=== PATIENT | female | born 1975 | race Caucasian/White ===

== ENCOUNTER 2018-01-23 10:58 | Emergency (ER) | payer BC ==
[2018-01-23 11:07] VITALS: RESP 18
[2018-01-23] MEDS ORDERED: SODIUM CHLORIDE 0.9% 1,000 ML IV STA (11:25)
--- NOTE | 2018-01-23 11:30 | ED ---
Neuro HPI - General Source: patient, family <Vinnie Barth - Last Filed: 01/23/18 13:13> - General Source: patient, RN notes reviewed, old records reviewed Mode of arrival: ambulatory Limitations: no limitations - History of Present Illness Is the patient presenting with stroke symptoms?: Yes Last Known Well Date: 01/23/18 Last Known Well Time: 09:30 Onset/Timin -: minutes(s) Location: right face <Alis Mays - Last Filed: 01/31/18 18:23> - General Chief Complaint: Neuro Symptoms/Deficit Stated Complaint: Facial/Arm Numbness Time Seen by Provider: 01/23/18 11:12 - History of Present Illness Initial Comments: See course. Patient was also evaluated by myself with concerns for right-sided weakness. (BarthVinnie) Patient is a 42-year-old female chief complaint of migraine headache for the past 3 days. She reports that she took some Fioricet today and had some relief of her headache. She states that she noticed on 9:30 AM and it seemed like the right side of her facial drooping. She states she's had no other neurological symptoms. She states she feels numbness and tingling on the right lower half of her face. Forehead is preserved. Patient states that she hasn't. Minor minimal posterior headache at this time. Patient states she's had no nausea or vomiting. She denies any cardiac history. No previous history of strokes. She does have a history of migraines. She states that this migraine was typical for her, knowing changes or any worsening migraine symptoms over the past few days. (Alis Mays) - Related Data Home Medications: Home Medications Medication Instructions Recorded Confirmed Cetirizine HCl [Zyrtec] 10 mg PO DAILY 05/23/15 07/04/15 Ibuprofen [Motrin] 600 mg PO Q8HR PRN 05/23/15 07/04/15 Allergies/Adverse Reactions: Allergies Allergy/AdvReac Type Severity Reaction Status Date / Time No Known Allergies Allergy Verified 01/23/18 11:07 Review of Systems ROS Other: All systems not noted in ROS Statement are negative. Constitutional: Denies: fever Eyes: Denies: eye pain ENT: Denies: ear pain Respiratory: Denies: cough Cardiovascular: Denies: chest pain Endocrine: Denies: fatigue Gastrointestinal: Denies: abdominal pain Genitourinary: Denies: dysuria Musculoskeletal: Denies: back pain Skin: Denies: rash Neurological: Reports: headache (Resolved), weakness. Denies: confusion <Vinnie Barth - Last Filed: 01/23/18 13:13> ROS Other: All systems not noted in ROS Statement are negative. <Alis Mays - Last Filed: 01/31/18 18:23> ROS Statement: Those systems with pertinent positive or pertinent negative responses have been documented in the HPI. General Exam Limitations: no limitations General appearance: alert, in no apparent distress Head exam: Present: atraumatic Eye exam: Present: normal appearance, PERRL, EOMI. Absent: nystagmus ENT exam: Present: normal oropharynx Neck exam: Present: normal inspection Respiratory exam: Present: normal lung sounds bilaterally Cardiovascular Exam: Present: regular rate, normal rhythm Extremities exam: Present: normal inspection Neurological exam: Present: alert, CN II-XII intact. Absent: motor sensory deficit Expanded Neurological exam: Present: protecting the airway Speech: Present: fluid speech Cranial nerves: EOM's Intact: Normal, Facial Sensation: Abnormal Right ( Decrease right facial of the maxillary and mandibular region) Cerebellar function: Finger to Nose: Normal Sensory exam: Upper Extremity Light Touch: Normal, Lower Extremity Light Touch: Abnormal Right (Slightly decreased on the right) Motor strength exam: RUE: 4, LUE: 5, RLE: 4, LLE: 5 Eye Response: (4) open spontaneously Motor Response: (6) obeys commands Verbal Response: (5) oriented Psychiatric exam: Present: normal affect, normal mood Skin exam: Present: normal color <Vinnie Barth - Last Filed: 01/23/18 13:13> Limitations: no limitations General appearance: alert, in no apparent distress Head exam: Present: atraumatic, normocephalic, normal inspection Eye exam: Present: normal appearance, PERRL, EOMI. Absent: scleral icterus, conjunctival injection, periorbital swelling ENT exam: Present: normal exam, normal oropharynx, mucous membranes moist, other (Patient is a minor right-sided facial droop. Forehead is preserved.) Neck exam: Present: normal inspection. Absent: tenderness, meningismus, lymphadenopathy Respiratory exam: Present: normal lung sounds bilaterally. Absent: respiratory distress, wheezes, rales, rhonchi, stridor Cardiovascular Exam: Present: regular rate, normal rhythm, normal heart sounds. Absent: systolic murmur, diastolic murmur, rubs, gallop, clicks GI/Abdominal exam: Present: soft, normal bowel sounds. Absent: distended, tenderness, guarding, rebound, rigid Extremities exam: Present: normal inspection, full ROM, normal capillary refill , other (Minor right arm weakness.). Absent: tenderness, pedal edema, joint swelling, calf tenderness Back exam: Present: normal inspection Neurological exam: Present: alert, oriented X3, CN II-XII intact Psychiatric exam: Present: normal affect, normal mood Skin exam: Present: warm, dry, intact, normal color. Absent: rash <Alis Mays - Last Filed: 01/31/18 18:23> - General Exam Comments Initial Comments: 42-year-old female. Alert. No acute distress. (Alis Mays) Stroke MDM - Lab Data Result diagrams: 01/23/18 11:30 01/23/18 11:30 - Radiology Data Radiology results: report reviewed (Computed tomography scan of the brain and CT angios of the brain and neck reveal no acute abnormality) <Vinnie Barth - Last Filed: 01/23/18 13:13> - Lab Data Result diagrams: 01/23/18 11:30 01/23/18 11:30 <Alis Mays - Last Filed: 01/31/18 18:23> - Lab Data Lab Results 01/23/18 01/23/18 01/23/18 Range/Units 11:30 11:30 11:30 WBC 6.0 (3.8-10.6) k/uL RBC 4.56 (3.80-5.40) m/uL Hgb 14.0 (11.4-16.0) gm/dL Hct 42.6 (34.0-46.0) % MCV 93.6 (80.0-100.0) fL MCH 30.8 (25.0-35.0) pg MCHC 32.9 (31.0-37.0) g/dL RDW 13.7 (11.5-15.5) % Plt Count 258 (150-450) k/uL Neutrophils % 61 % Lymphocytes % 27 % Monocytes % 6 % Eosinophils % 4 % Basophils % 1 % Neutrophils # 3.7 (1.3-7.7) k/uL Lymphocytes # 1.6 (1.0-4.8) k/uL Monocytes # 0.3 (0-1.0) k/uL Eosinophils # 0.3 (0-0.7) k/uL Basophils # 0.0 (0-0.2) k/uL PT (9.0-12.0) sec INR (<1.2) APTT (22.0-30.0) sec Sodium 144 (137-145) mmol/L Potassium 4.4 (3.5-5.1) mmol/L Chloride 112 H (98-107) mmol/L Carbon Dioxide 21 L (22-30) mmol/L Anion Gap 11 mmol/L BUN 11 (7-17) mg/dL Creatinine 0.71 (0.52-1.04) mg/dL Est GFR (CKD-EPI)AfAm >90 (>60 ml/min/1.73 sqM) Est GFR (CKD-EPI)NonAf >90 (>60 ml/min/1.73 sqM) Glucose 98 (74-99) mg/dL Calcium 8.9 (8.4-10.2) mg/dL Total Bilirubin 0.5 (0.2-1.3) mg/dL AST 17 (14-36) U/L ALT 26 (9-52) U/L Alkaline Phosphatase 52 (38-126) U/L Total Creatine Kinase 75 (30-135) U/L CK-MB (CK-2) 0.3 (0.0-2.4) ng/mL CK-MB (CK-2) Rel Index 0.4 Troponin I <0.012 (0.000-0.034) ng/mL Total Protein 6.6 (6.3-8.2) g/dL Albumin 3.8 (3.5-5.0) g/dL 01/23/18 Range/Units 11:30 WBC (3.8-10.6) k/uL RBC (3.80-5.40) m/uL Hgb (11.4-16.0) gm/dL Hct (34.0-46.0) % MCV (80.0-100.0) fL MCH (25.0-35.0) pg MCHC (31.0-37.0) g/dL RDW (11.5-15.5) % Plt Count (150-450) k/uL Neutrophils % % Lymphocytes % % Monocytes % % Eosinophils % % Basophils % % Neutrophils # (1.3-7.7) k/uL Lymphocytes # (1.0-4.8) k/uL Monocytes # (0-1.0) k/uL Eosinophils # (0-0.7) k/uL Basophils # (0-0.2) k/uL PT 9.8 (9.0-12.0) sec INR 1.0 (<1.2) APTT 22.3 (22.0-30.0) sec Sodium (137-145) mmol/L Potassium (3.5-5.1) mmol/L Chloride (98-107) mmol/L Carbon Dioxide (22-30) mmol/L Anion Gap mmol/L BUN (7-17) mg/dL Creatinine (0.52-1.04) mg/dL Est GFR (CKD-EPI)AfAm (>60 ml/min/1.73 sqM) Est GFR (CKD-EPI)NonAf (>60 ml/min/1.73 sqM) Glucose (74-99) mg/dL Calcium (8.4-10.2) mg/dL Total Bilirubin (0.2-1.3) mg/dL AST (14-36) U/L ALT (9-52) U/L Alkaline Phosphatase (38-126) U/L Total Creatine Kinase (30-135) U/L CK-MB (CK-2) (0.0-2.4) ng/mL CK-MB (CK-2) Rel Index Troponin I (0.000-0.034) ng/mL Total Protein (6.3-8.2) g/dL Albumin (3.5-5.0) g/dL Past Medical History Additional Past Medical History / Comment(s): Vertigo, migraines, palpitation History of Any Multi-Drug Resistant Organisms: None Reported Past Surgical History: Section, Orthopedic Surgery Additional Past Surgical History / Comment(s): ORIF Right humerus Past Psychological History: No Psychological Hx Reported Smoking Status: Never smoker Past Alcohol Use History: Occasional Past Drug Use History: None Reported <Alis Mays - Last Filed: 01/31/18 18:23> Course <Vinnie Barth - Last Filed: 01/23/18 13:13> <Alis Mays - Last Filed: 01/31/18 18:23> Vital Signs 01/23/18 01/23/18 01/23/18 11:04 11:30 11:45 Temperature 98.3 F Pulse Rate 75 94 74 Respiratory 18 18 18 Rate Blood Pressure 166/83 141/88 129/59 O2 Sat by Pulse 100 99 99 Oximetry 01/23/18 01/23/18 01/23/18 12:00 12:15 13:30 Temperature Pulse Rate 66 79 76 Respiratory 18 18 18 Rate Blood Pressure 111/79 129/79 122/76 O2 Sat by Pulse 99 98 98 Oximetry 01/23/18 13:49 Temperature 98.9 F Pulse Rate 76 Respiratory 18 Rate Blood Pressure 122/59 O2 Sat by Pulse 98 Oximetry - Reevaluation(s) Reevaluation #1: 01/23/18 11:35 Code stroke as been called. Patient case brought to my attention by physician accounts receivable assistant with concerns for right facial droop. Patient reevaluated by myself, Dr. Barth. Patient states she has been having a migraine headache for the past couple of days. Patient woke up around 8:30. Around 9:30 patient noticed some odd sensation of her right face. Patient does admit there may be some minimal weakness of her right arm and leg. Upon exam patient does have mild right facial droop not involving the forehead. There is some decreased sensation on the right face as well. Patient is alert and answers questions appropriately and follows commands appropriately. Patient has minimal drift of right arm and right leg. There is some mild decreased sensation of the right leg. Nurse is doing NAH scale. cT scan was ordered. Patient is updated on potential use of TPA. Patient is provided risks and benefit information and informed that she will need to make a decision in the near future. is also present during discussion. 01/23/18 12:07 Patient again reevaluated. Patient again updated on risks and benefits of TPA. Case was discussed in detail with Dr. suh who does recommend providing TPA. He did review computed tomography scan. Pharmacy was notified. Exclusion criteria were reviewed and patient is a candidate. Patient does demonstrate medical decision making. 01/23/18 12:21 TPA has arrived and is being provided. Patient does want TPA to be given. is present and in agreement. Patient was evaluated with stroke robot by Dr. suh. 01/23/18 12:28 Patient was not provided TPA and less than 1 hour of arrival secondary to patient not identified as a stroke upon presentation. 01/23/18 12:51 EKG: Normal sinus rhythm 65. UT 152. QRS 86. QT 422. QTC 4:30. Normal axis. Normal QRS. No acute ST change. 01/23/18 13:13 Doctor Deandre called back and wants patient transferred to [facility]. Patient was updated regarding this. ER was notified. (Vinnie Barth) Critical Care Time Critical Care Time: Yes Total Critical Care Time: 42 <Vinnie Barth - Last Filed: 01/23/18 13:13> Disposition Is patient prescribed a controlled substance at d/c from ED?: No Time of Disposition: 13:14 - Out of Hospital Transfer - Req. Specs Out of Hospital Transfer - Requested Specifics: Other Emergency Center <Vinnie Barth - Last Filed: 01/23/18 13:13> Is patient prescribed a controlled substance at d/c from ED?: No When asked, does pt state using other controlled substances?: No If prescribed controlled substance>3 days was MAPS reviewed?: No If opioid is for acute pain is fill amount 7 days or less?: No If Rx opioid, was Start Talking consent form obtained?: No <Alis Mays - Last Filed: 01/31/18 18:23> Clinical Impression: Cerebrovascular accident Disposition: OTHER INSTITUTION NOT DEFINED Condition: Stable Referrals: None,Stated [Primary Care Provider] - 1-2 days
[2018-01-23] MEDS ORDERED: RX INFO: IV CONTRAST WAS GIVEN 1 EACH MISC MISCELLANE PRN (11:32)
[2018-01-23 11:53] LABS: Basophils % (A) 1 %; Eosinophils # (A) 0.3 k/uL (0-0.7); Eosinophils % (A) 4 %; HCT 42.6 % (34.0-46.0); Lymphocytes # (A) 1.6 k/uL (1.0-4.8); Lymphocytes % (A) 27 %; MCH 30.8 pg (25.0-35.0); MCHC 32.9 g/dL (31.0-37.0); MCV 93.6 fL (80.0-100.0); Mean Platelet Volume 6.8; Monocytes # (A) 0.3 k/uL (0-1.0); Monocytes % (A) 6 %; Neutrophils # (A) 3.7 k/uL (1.3-7.7); Neutrophils % (A) 61 %; Platelet Count 258 k/uL (150-450); RBC 4.56 m/uL (3.80-5.40); RDW 13.7 % (11.5-15.5)
[2018-01-23 12:01] LABS: Partial Thromboplastin Time 22.3 sec (22.0-30.0); Prothrombin Time 9.8 sec (9.0-12.0)
[2018-01-23 12:04] LABS: ALT 26 U/L (9-52); AST 17 U/L (14-36); Albumin 3.8 g/dL (3.5-5.0); Alkaline Phosphatase 52 U/L (38-126); Anion Gap 11 mmol/L; Blood Urea Nitrogen 11 mg/dL (7-17); Calcium 8.9 mg/dL (8.4-10.2); Carbon Dioxide 21 mmol/L (22-30); Chloride 112 mmol/L (98-107); Glucose 98 mg/dL (74-99); Potassium 4.4 mmol/L (3.5-5.1); Sodium 144 mmol/L (137-145); Total Bilirubin 0.5 mg/dL (0.2-1.3); Total Protein 6.6 g/dL (6.3-8.2)
--- NOTE | 2018-01-23 12:04 | CT ---
EXAMINATION TYPE: CT brain wo con DATE OF EXAM: 01/23/2018 COMPARISON: 08/29/2017 HISTORY: 42-year-old female neurologic deficits, weakness TECHNIQUE: Examination was done in axial plane without intravenous contrast. Coronal and sagittal r econstructions performed. CT DLP: 995.50 mGycm Automated exposure control for dose reduction was used. FINDINGS: There is no evidence of acute intracranial hemorrhage, acute ischemic changes, mass, mass-effect, or extra-axial fluid collection. There is no effacement of cerebral sulci or basal subarachnoid cister ns. There is no hydrocephalus. There is no midline shift. Alston-white matter distinction is preserv ed. Moderate mucosal thickening ethmoid air cells. Trace air-fluid level right maxillary sinus and mild m ucosal thickening left maxillary sinus. Mastoid air cells well pneumatized. Orbits and globes are int act. IMPRESSION: No acute intracranial abnormality seen.
[2018-01-23] MEDS ORDERED: ALTEPLASE BOLUS 9 MG in EMPTY SYRINGE 1 SYR IV STA (12:07)
[2018-01-23] MEDS ORDERED: ALTEPLASE 81 MG in EMPTY BAG 1 BAG IV STA (12:07)
[2018-01-23 12:13] LABS: Creatine Kinase 75 U/L (30-135)
[2018-01-23 12:26] LABS: Creatine Kinase MB 0.3 ng/mL (0.0-2.4); Troponin I <0.012 ng/mL (0.000-0.034)
--- NOTE | 2018-01-23 12:42 | CT ---
EXAMINATION TYPE: CT angio head neck DATE OF EXAM: 01/23/2018 COMPARISON: CT brain same day HISTORY: 42-year-old female with weakness TECHNIQUE: Contiguous axial scanning of the brain and neck performed with IV Contrast, patient inject ed with 100 mL of Isovue 370. Coronal/sagittal MIP reconstructions performed. 3-D reconstructions gen erated by a dedicated independent workstation. CT DLP: 420.10 mGycm Automated exposure control for dose reduction was used. FINDINGS: Neck: Lobulated mucosal thickening floor of the left maxillary sinus and also the right with a trace air-fl uid level in the right maxillary sinus. Moderate mucosal thickening ethmoid air cells. There is conventional arterial vessel branching anatomy. The right common and internal carotid arteri es are widely patent. The left common and internal carotid arteries are widely patent. The vertebral artery origins are patent and the vessels are codominant and appear opacified throughou t their course. Head: There are limitations due to excessive noise artifacts. No significant stenosis, aneurysmal change, or arterial occlusion is seen. IMPRESSION: 1. NECK: THE CAROTID AND VERTEBRAL ARTERIES OF THE NECK REMAIN WIDELY PATENT. 2. HEAD: SOME LIMITATIONS DUE TO NOISE ARTIFACTS. NO ARTERIAL OCCLUSION, SIGNIFICANT STENOSIS, OR AN EURYSMAL CHANGE SEEN.
[2018-01-23 13:49] VITALS: PULSE 76
[2018-01-23 13:50] VITALS: BP 122/59; TEMP 98.9
== END 2018-01-23 13:50 | disposition other institution (70) ==
LOC: EC 10:58
DX: I63.9 Cerebral infarction, unspecified (principal); G43.909 Migraine, unspecified, not intractable, without status migrainosus; R40.2142 Coma scale, eyes open, spontaneous, at arrival to emergency department; R40.2252 Coma scale, best verbal response, oriented, at arrival to emergency department; R40.2362 Coma scale, best motor response, obeys commands, at arrival to emergency department; Z79.899 Other long term (current) drug therapy
CPT/HCPCS: 99291; 37195; 36415; 93005; 80053; 82550; 82553; 84484; 85025; 85610; 85730; 70496; 70450; 70498; J2997; Q9967

== ENCOUNTER → 2019-07-04 | Outpatient (CLI) | payer BC ==
[2019-07-04 12:55] LABS: HCT 39.3 % (34.0-46.0); HGB 13.2 gm/dL (11.4-16.0); MCH 31.8 pg (25.0-35.0); MCHC 33.5 g/dL (31.0-37.0); MCV 94.9 fL (80.0-100.0); Mean Platelet Volume 6.5; Platelet Count 314 k/uL (150-450); RBC 4.14 m/uL (3.80-5.40); RDW 14.1 % (11.5-15.5); WBC 8.3 k/uL (3.8-10.6)
[2019-07-04 14:24] LABS: Erythrocyte Sedimentation Rate 11 mm/hr (0-20)
[2019-07-04 19:59] LABS: African American GFR (CKD) 78.8 (60.0-200.0); Anion Gap 10.7 mmol/L (4.00-12.00); Calcium 8.6 mg/dL (8.7-10.3); Carbon Dioxide 24.3 mmol/L (21.6-31.8); Potassium 4.2 mmol/L (3.5-5.5)
== END | disposition home or self-care (01) ==
LOC: LABWHC1 11:59
PROVIDERS: ATTEND Psychiatry & Neurology Neurology
DX: M79.10 Myalgia, unspecified site (principal); M54.2 Cervicalgia; M54.5 Low back pain; G43.909 Migraine, unspecified, not intractable, without status migrainosus; T42.6X1A Poisoning by other antiepileptic and sedative-hypnotic drugs, accidental (unintentional), initial encounter
CPT/HCPCS: 36415; 80048; 82306; 82550; 82607; 84439; 84443; 85027; 85652; 86038

== ENCOUNTER → 2020-09-17 | Outpatient (CLI) | payer BC ==
--- NOTE | 2020-09-17 11:10 | US ---
EXAMINATION TYPE: US abdomen complete DATE OF EXAM: 09/17/2020 COMPARISON: NONE CLINICAL HISTORY: 44-year-old female R10.13 epigastric pain. TECHNIQUE: Multiple sonographic images of the abdomen are obtained. FINDINGS: EXAM MEASUREMENTS: Liver Length: 12.4 cm Gallbladder Wall: 3 mm CBD: 0.4 cm Spleen: 10.6 cm Right Kidney: 10.3 x 4.1 x 4.3 cm Left Kidney: 10.5 x 4.2 x 4.9 cm Meter Setter notes: Morbidly obese patient, technically difficult study. Pancreas: Only a small portion of the pancreatic neck is visualized. Remainder is obscured by bowel gas shadowing. Liver: Slightly heterogeneous echotexture. Unable to image the dome of the liver due to high position . Gallbladder: wnl CBD: wnl Spleen: wnl Right Kidney: Inferior pole obscured by bowel gas. No hydronephrosis. Left Kidney: wnl Upper IVC: wnl Abd Aorta: portions visualized wnl, distal/bifurcation obscured by bowel IMPRESSION: 1. Slightly heterogeneous echotexture of the liver may be on a technical basis or could reflect nonsp ecific hepatocellular disease. 2. Technically difficult study due to patient's size. Unable to adequately image the dome of the live r and pancreas. 3. No gallstones or biliary ductal dilatation.
== END | disposition home or self-care (01) ==
LOC: RADUSWWP 07:36
PROVIDERS: ATTEND Family Medicine
DX: R93.2 Abnormal findings on diagnostic imaging of liver and biliary tract (principal); R10.13 Epigastric pain
CPT/HCPCS: 76700

== ENCOUNTER 2020-12-01 20:59 | Observation (INO) | payer BC ==
--- NOTE | 2020-12-01 21:48 | XR ---
EXAMINATION TYPE: XR chest 2V DATE OF EXAM: 12/01/2020 COMPARISON: 05/23/2015. HISTORY: Chest pain. TECHNIQUE: Frontal and lateral views of the chest are obtained. FINDINGS: There is no focal air space opacity, pleural effusion, or pneumothorax seen. The cardiac silhouette size is within normal limits. The osseous structures are intact. IMPRESSION: No acute cardiopulmonary process.
[2020-12-01 22:09] LABS: Basophils % (A) 0 %; Eosinophils # (A) 0.1 k/uL (0-0.7); Eosinophils % (A) 1 %; HCT 39.8 % (34.0-46.0); HGB 13.2 gm/dL (11.4-16.0); Lymphocytes # (A) 1.4 k/uL (1.0-4.8); Lymphocytes % (A) 10 %; MCH 30.2 pg (25.0-35.0); MCHC 33.1 g/dL (31.0-37.0); MCV 91.3 fL (80.0-100.0); Monocytes # (A) 0.6 k/uL (0-1.0); Monocytes % (A) 5 %; Neutrophils # (A) 11.4 k/uL (1.3-7.7); Neutrophils % (A) 84 %; Platelet Count 316 k/uL (150-450); RBC 4.36 m/uL (3.80-5.40); RDW 15.6 % (11.5-15.5); WBC 13.6 k/uL (3.8-10.6)
[2020-12-01 22:19] LABS: Albumin 4.1 g/dL (3.5-5.0); Calcium 9.6 mg/dL (8.4-10.2); Magnesium 1.9 mg/dL (1.6-2.3); Potassium 4.2 mmol/L (3.5-5.1); Total Bilirubin 0.5 mg/dL (0.2-1.3); Total Protein 7.3 g/dL (6.3-8.2)
[2020-12-01 22:26] LABS: INR 0.9 (<1.2); Prothrombin Time 9.9 sec (9.0-12.0)
[2020-12-01 22:30] LABS: Partial Thromboplastin Time 21.4 sec (22.0-30.0)
[2020-12-01] MEDS ORDERED: SODIUM CHLORIDE 0.9% 1,000 ML IV STA (23:32)
[2020-12-01] MEDS ORDERED: HYDROmorphone 0.5 MG/0.5 ML SYRINGE IVP STA (23:33)
[2020-12-01] MEDS ORDERED: ONDANSETRON 4 MG/2 ML VIAL IVP STA (23:33)
[2020-12-01 23:54] LABS: Amylase 36 U/L (30-110); Lipase 67 U/L (23-300)
[2020-12-01 23:59] LABS: Appearance,Urine Clear (Clear); Bilirubin,Urine Negative (Negative); Blood,Urine Negative (Negative); Color,Urine Yellow; Glucose,Urine (UA) Negative (Negative); Ketones,Urine Negative (Negative); Leukocyte Esterase,Urine Negative (Negative); Nitrite,Urine Negative (Negative); PH, Urine 5.5 (5.0-8.0); Protein,Urine Negative (Negative); Specific Gravity,Urine 1.024 (1.001-1.035)
--- NOTE | 2020-12-02 00:01 | ED ---
General Adult HPI - General Chief complaint: Chest Pain Stated complaint: Stomach pain Time Seen by Provider: 12/01/20 23:15 Source: patient Mode of arrival: ambulatory Limitations: no limitations - History of Present Illness Initial comments: 45-year-old female with a past medical history of migraines, palpitations presents to the emergency room for epigastric pain. Patient states this started around 5:30 PM. States it radiates to her back. States she is nauseous as well. She has vomited once. Patient denies lower abdominal pain. Denies radia ting chest pain. Patient denies diarrhea. Patient did test positive for Covid on Wednesday but has not had any symptoms of Covid and believes she actually had a couple months ago. Patient has no other complaints at this time including shortness of breath, chest pain, headache, or visual changes. - Related Data Home Medications Medication Instructions Recorded Confirmed Cetirizine HCl [Zyrtec] 10 mg PO DAILY 05/23/15 07/04/15 Ibuprofen [Motrin] 600 mg PO Q8HR PRN 05/23/15 07/04/15 Allergies Allergy/AdvReac Type Severity Reaction Status Date / Time No Known Allergies Allergy Verified 12/01/20 21:21 Review of Systems ROS Statement: Those systems with pertinent positive or pertinent negative responses have been documented in the HPI. ROS Other: All systems not noted in ROS Statement are negative. Past Medical History Additional Past Medical History / Comment(s): Vertigo, migraines, palpitation History of Any Multi-Drug Resistant Organisms: None Reported Past Surgical History: Section, Orthopedic Surgery Additional Past Surgical History / Comment(s): ORIF Right humerus Past Psychological History: No Psychological Hx Reported Smoking Status: Never smoker Past Alcohol Use History: Occasional Past Drug Use History: None Reported General Exam Limitations: no limitations General appearance: alert, in no apparent distress Head exam: Present: atraumatic, normocephalic, normal inspection Eye exam: Present: normal appearance, PERRL, EOMI. Absent: scleral icterus, conjunctival injection, periorbital swelling ENT exam: Present: normal exam, mucous membranes moist Neck exam: Present: normal inspection. Absent: tenderness, meningismus, lymphadenopathy Respiratory exam: Present: normal lung sounds bilaterally. Absent: respiratory distress, wheezes, rales, rhonchi, stridor Cardiovascular Exam: Present: regular rate, normal rhythm, normal heart sounds. Absent: systolic murmur, diastolic murmur, rubs, gallop, clicks GI/Abdominal exam: Present: soft, tenderness (epigastric tenderness, no lower abdominal tenderness), normal bowel sounds. Absent: distended, guarding, reboun d, rigid Extremities exam: Present: other (bilat dp pulses 2+, bilat radial pulses 2+, no skin or temp changes in extremities) Course Vital Signs 12/01/20 12/02/20 21:16 01:01 Temperature 97.8 F 98.9 F Pulse Rate 87 84 Respiratory 18 20 Rate Blood Pressure 144/92 117/77 O2 Sat by Pulse 99 98 Oximetry EKG Findings - EKG Comments: EKG Findings:: Normal sinus rhythm, ventricular rate 74, ND interval 170, QTC 417 Medical Decision Making - Medical Decision Making Vitals Stable. Patient initially in moderate distress secondary to pain. CBC does show leukocytosis. CMP shows slight transaminitis. Amylase and lipase are normal. Gallbladder ultrasound did show a distended gallbladder with slightly thickened wall and a trace amount of surrounding fluid. Small stone and/or sludge dependently with positive sonographic García sign suspicious for acute cholecystitis. This is clinically correlated with patient's presentation. Dr. Webber have discussed this case with Dr. Crump, will admit patient. - Lab Data Result diagrams: 12/01/20 21:53 12/01/20 21:53 Lab Results 12/01/20 12/01/20 12/01/20 Range/Units 21:53 21:53 21:53 WBC 13.6 H (3.8-10.6) k/uL RBC 4.36 (3.80-5.40) m/uL Hgb 13.2 (11.4-16.0) gm/dL Hct 39.8 (34.0-46.0) % MCV 91.3 (80.0-100.0) fL MCH 30.2 (25.0-35.0) pg MCHC 33.1 (31.0-37.0) g/dL RDW 15.6 H (11.5-15.5) % Plt Count 316 (150-450) k/uL MPV 7.0 Neutrophils % 84 % Lymphocytes % 10 % Monocytes % 5 % Eosinophils % 1 % Basophils % 0 % Neutrophils # 11.4 H (1.3-7.7) k/uL Lymphocytes # 1.4 (1.0-4.8) k/uL Monocytes # 0.6 (0-1.0) k/uL Eosinophils # 0.1 (0-0.7) k/uL Basophils # 0.0 (0-0.2) k/uL PT 9.9 (9.0-12.0) sec INR 0.9 (<1.2) APTT 21.4 L (22.0-30.0) sec Sodium 136 L (137-145) mmol/L Potassium 4.2 (3.5-5.1) mmol/L Chloride 104 (98-107) mmol/L Carbon Dioxide 21 L (22-30) mmol/L Anion Gap 11 mmol/L BUN 10 (7-17) mg/dL Creatinine 0.91 (0.52-1.04) mg/dL Est GFR (CKD-EPI)AfAm 87 (>60 ml/min/1.73 sqM) Est GFR (CKD-EPI)NonAf 75 (>60 ml/min/1.73 sqM) Glucose 143 H (74-99) mg/dL Calcium 9.6 (8.4-10.2) mg/dL Magnesium 1.9 (1.6-2.3) mg/dL Total Bilirubin 0.5 (0.2-1.3) mg/dL AST 129 H (14-36) U/L ALT 48 H (4-34) U/L Alkaline Phosphatase 117 (38-126) U/L Troponin I (0.000-0.034) ng/mL Total Protein 7.3 (6.3-8.2) g/dL Albumin 4.1 (3.5-5.0) g/dL Amylase (30-110) U/L Lipase (23-300) U/L Urine Color Urine Appearance (Clear) Urine pH (5.0-8.0) Ur Specific [place] (1.001-1.035) Urine Protein (Negative) Urine Glucose (UA) (Negative) Urine Ketones (Negative) Urine Blood (Negative) Urine Nitrite (Negative) Urine Bilirubin (Negative) Urine Urobilinogen (<2.0) mg/dL Ur Leukocyte Esterase (Negative) 03/28/21 03/28/21 03/28/21 Range/Units 21:53 21:53 23:36 WBC (3.8-10.6) k/uL RBC (3.80-5.40) m/uL Hgb (11.4-16.0) gm/dL Hct (34.0-46.0) % MCV (80.0-100.0) fL MCH (25.0-35.0) pg MCHC (31.0-37.0) g/dL RDW (11.5-15.5) % Plt Count (150-450) k/uL MPV Neutrophils % % Lymphocytes % % Monocytes % % Eosinophils % % Basophils % % Neutrophils # (1.3-7.7) k/uL Lymphocytes # (1.0-4.8) k/uL Monocytes # (0-1.0) k/uL Eosinophils # (0-0.7) k/uL Basophils # (0-0.2) k/uL PT (9.0-12.0) sec INR (<1.2) APTT (22.0-30.0) sec Sodium (137-145) mmol/L Potassium (3.5-5.1) mmol/L Chloride (98-107) mmol/L Carbon Dioxide (22-30) mmol/L Anion Gap mmol/L BUN (7-17) mg/dL Creatinine (0.52-1.04) mg/dL Est GFR (CKD-EPI)AfAm (>60 ml/min/1.73 sqM) Est GFR (CKD-EPI)NonAf (>60 ml/min/1.73 sqM) Glucose (74-99) mg/dL Calcium (8.4-10.2) mg/dL Magnesium (1.6-2.3) mg/dL Total Bilirubin (0.2-1.3) mg/dL AST (14-36) U/L ALT (4-34) U/L Alkaline Phosphatase (38-126) U/L Troponin I <0.012 (0.000-0.034) ng/mL Total Protein (6.3-8.2) g/dL Albumin (3.5-5.0) g/dL Amylase 36 (30-110) U/L Lipase 67 (23-300) U/L Urine Color Yellow Urine Appearance Clear (Clear) Urine pH 5.5 (5.0-8.0) Ur Specific [place] 1.024 (1.001-1.035) Urine Protein Negative (Negative) Urine Glucose (UA) Negative (Negative) Urine Ketones Negative (Negative) Urine Blood Negative (Negative) Urine Nitrite Negative (Negative) Urine Bilirubin Negative (Negative) Urine Urobilinogen 2.0 (<2.0) mg/dL Ur Leukocyte Esterase Negative (Negative) Disposition Clinical Impression: Cholecystitis, Transaminitis, Leukocytosis Disposition: ADMITTED IP TO THIS HOSP Is patient prescribed a controlled substance at d/c from ED?: No Referrals: Jin Brink MD [Primary Care Provider] - 1-2 days Time of Disposition: 01:59
--- NOTE | 2020-12-02 00:53 | XR ---
EXAMINATION TYPE: XR abdomen 1V DATE OF EXAM: 12/02/2020 COMPARISON: NONE HISTORY: Nausea and vomiting TECHNIQUE: 2 views supine FINDINGS: There is no sign of intestinal obstruction or pneumoperitoneum. Fecal pattern is normal. Th ere is no evidence of a mass. There are no pathologic calcifications over the kidneys. Lung bases are clear. IMPRESSION: Nonacute abdomen.
--- NOTE | 2020-12-02 01:19 | US ---
EXAM: US Abdomen Limited, Gallbladder CLINICAL HISTORY: ITS.REASON US Reason: pain TECHNIQUE: Real-time ultrasound of the right upper quadrant with image documentation. COMPARISON: No relevant prior studies available. FINDINGS: Liver: The liver is mildly enlarged and fatty infiltrated measuring 18. 8 cm. No focal liver lesion is seen. Gallbladder: The gallbladder is fully distended. There is a 6 mm stone versus sludge in the dependent portion of the gallbladder. The gallbladder wall is slightly thickened measuring 3.2 mm. A trace amount of pericholecystic fluid is seen. Common bile duct: The common bile duct is upper normal measuring 7 mm. No stones. No dilation. Pancreas: Unremarkable as visualized. Right kidney: The right kidney measures 10.1 cm with no hydronephrosis. IMPRESSION: Distended gallbladder with slightly thickened wall a trace amount of surrounding fluid. Small stone and/or sludge dependently with positive sonographic García sign suspicious for acute cholecystitis.
[2020-12-02] MEDS ORDERED: AMPICILLIN-SULBACTAM 3 GM in SODIUM CHLORIDE 0.9% 100 ML IVPB STA (01:25)
[2020-12-02] MEDS ORDERED: ONDANSETRON 4 MG/2 ML VIAL IVP PRN (02:00)
[2020-12-02] MEDS ORDERED: ACETAMINOPHEN TAB 325 MG TAB PO PRN (02:00)
[2020-12-02] MEDS ORDERED: NALOXONE 0.4 MG/ML 1 ML VIAL IV PRN (02:00)
[2020-12-02] MEDS: SODIUM CHLORIDE 0.9% 1,000 ML IV SCH ×3 (02:28→17:48)
[2020-12-02] MEDS: HYDROmorphone 0.5 MG/0.5 ML SYRINGE IVP PRN (03:28)
[2020-12-02] MEDS ORDERED: ACETAMINOPHEN IV (For NPO) 1,000 MG in EMPTY BAG 1 BAG IVPB ONE (04:30)
[2020-12-02] MEDS ORDERED: INDOCYANINE GREEN 25 MG VIAL IV STA (04:34)
[2020-12-02] MEDS ORDERED: SCOPOLAMINE 1.5MG/72HR PATCH TRANSDERM SCH (04:45)
[2020-12-02] MEDS: PIPERACILLIN-TAZOBACTAM 3.375 GM in SODIUM CHLORIDE 0.9% 100 ML IVPB SCH ×4 (05:30→23:54)
[2020-12-02] MEDS: KETOROLAC 15 MG/ML 1 ML VIAL IVP SCH ×3 (05:52→17:51)
[2020-12-02 11:18] LABS: Basophils % (A) 0 %; Eosinophils # (A) 0.1 k/uL (0-0.7); Eosinophils % (A) 1 %; HCT 36.5 % (34.0-46.0); HGB 12.6 gm/dL (11.4-16.0); Lymphocytes # (A) 1.8 k/uL (1.0-4.8); Lymphocytes % (A) 17 %; MCH 31.7 pg (25.0-35.0); MCHC 34.5 g/dL (31.0-37.0); Mean Platelet Volume 7.1; Monocytes # (A) 0.7 k/uL (0-1.0); Monocytes % (A) 7 %; Neutrophils # (A) 7.6 k/uL (1.3-7.7); Neutrophils % (A) 74 %; Platelet Count 288 k/uL (150-450); RBC 3.96 m/uL (3.80-5.40); RDW 15.9 % (11.5-15.5); WBC 10.2 k/uL (3.8-10.6)
[2020-12-02 11:25] LABS: ALT 52 U/L (4-34); AST 77 U/L (14-36); African American GFR (CKD) >90 (>60 ml/min/1.73 sqM); Albumin 3.6 g/dL (3.5-5.0); Alkaline Phosphatase 104 U/L (38-126); Anion Gap 5 mmol/L; Blood Urea Nitrogen 7 mg/dL (7-17); Calcium 8.5 mg/dL (8.4-10.2); Carbon Dioxide 24 mmol/L (22-30); Chloride 109 mmol/L (98-107); Glucose 93 mg/dL (74-99); Non-African American GFR(CKD) 86 (>60 ml/min/1.73 sqM); Potassium 4.2 mmol/L (3.5-5.1); Sodium 138 mmol/L (137-145); Total Bilirubin 0.5 mg/dL (0.2-1.3); Total Protein 6.7 g/dL (6.3-8.2)
--- NOTE | 2020-12-02 13:00 | P.GSHP ---
History of Present Illness H&P Date: 12/02/20 Patient reports gallbladder attack from 5:30 yesterday. She has cholecystitis. Recommend cholecystectomy. May have 4 oz juice now in interim. CHIEF COMPLAINT: Cholecystitis HISTORY OF PRESENT ILLNESS: The patient is a 45-year-old female recently diagnosed with coronavirus 4 days ago who presents with 1 day history of epigastric including right upper quadrant abdominal pain. She reports her last meal was [place] food. Her severe right upper quadrant abdominal pain started 5:30 yesterday following her meal. She does report nausea. No active emesis. She also has previous similar attacks less than 9 months ago. At that time she did not seek any emergent medical attention in the hospital. She has known history of gallstones. She presents with right upper quadrant down pain and pradip gnostic studies for cholecystitis. PAST MEDICAL HISTORY: Please see list and reviewed PAST SURGICAL HISTORY: Please see list and reviewed MEDICATIONS: Please see list and reviewed ALLERGIES: Please see list and reviewed SOCIAL HISTORY: Please see list and reviewed FAMILY HISTORY: Please see list and reviewed REVIEW OF ORGAN SYSTEMS: CONSTITUTIONAL: No reports of fevers or chills. Morbid obesity due to excess calories, BMI 42.9 HEENT: Denies any troubles with the vision or hearing. She wears glasses. ENDOCRINE: No reports of hypothyroidism. No diabetes. RESPIRATORY: No recent pneumonias. CARDIOVASCULAR: Denies chest pain. Past palpitations GI: No blood in stools or constipation. MUSCULOSKELETAL: Has occasional joint pain including back pain. NEURO: No seizure disorders. No recent stroke. Has migraines. PSYCH: No depression or suicidal ideation. GENITOURINARY: No active blood in urine. No urinary hesitancy. HEMATOLOGIC: No personal or family history of DVTs or pulmonary emboli. SKIN: No skin cancer. PHYSICAL EXAM: VITAL SIGNS: Afebrile vital signs stable GENERAL: Well-developed pleasant in no acute distress. HEENT: No scleral icterus. Extraocular movements grossly intact. Moist buccal mucosa. NECK: Supple without lymphadenopathy. CHEST: Unlabored respirations. Equal bilateral excursions. CARDIOVASCULAR: Regular rate regular rhythm rhythm. Distal 2+ pulses. ABDOMEN: Protuberant. Tender along the epigastrium and right upper quadrant. MUSCULOSKELETAL: No clubbing, cyanosis, or edema. NEURO: Cranial nerves II to XII within normal limits. No focal or lateralizing signs. PSYCH: Alert and oriented to person, place and time. SKIN: Well-perfused good skin turgor. LABS: WBC elevated on admission over 13,000. AST and ALT elevated 129 and 48 respectively. Total bilirubin within normal limits. Coronavirus positive EKG: Reviewed demonstrating normal sinus rhythm STUDIES: Ultrasound the gallbladder independently reviewed demonstrating a stone impacted along the infundibulum. Gallbladder wall thickening of over 3 mm identified. This is my independent interpretation. REPORT: Chest x-ray demonstrates no acute pulmonary process. Ultrasound of gallbladder demonstrates common bile duct upper normal limits ASSESSMENT: 1. Acute cholecystitis 2. Morbid obesity due to excess calories, BMI 42.9 3. Coronavirus positive PLAN: 1. Robotic cholecystectomy was described. With her active coronavirus, she's elevated risk for complications 2. IV antibiotics to address acute cholecystitis in the interim. 3. Inpatient hospitalization more than 2 nights advised with active coronavirus and acute cholecystitis Past Medical History Additional Past Medical History / Comment(s): Vertigo, migraines, palpitation History of Any Multi-Drug Resistant Organisms: None Reported Past Surgical History: Section, Orthopedic Surgery Additional Past Surgical History / Comment(s): ORIF Right humerus Past Psychological History: No Psychological Hx Reported Smoking Status: Never smoker Past Alcohol Use History: Occasional Past Drug Use History: None Reported Medications and Allergies Home Medications Medication Instructions Recorded Confirmed Type Cetirizine HCl [Zyrtec] 10 mg PO DAILY 05/23/15 12/02/20 History Cholecalciferol [Vitamin D3 (25 75 mcg PO DAILY 12/02/20 12/02/20 History Mcg = 1000 Iu)] Topiramate [Topamax] 25 mg PO DAILY 12/02/20 12/02/20 History ZOLMitriptan 5 mg PO DAILY PRN 12/02/20 12/02/20 History Allergies Allergy/AdvReac Type Severity Reaction Status Date / Time No Known Allergies Allergy Verified 12/02/20 07:01 Surgical - Exam Vital Signs Temp Pulse Resp BP Pulse Ox 97.8 F 87 18 144/92 99 12/01/20 21:16 12/01/20 21:16 12/01/20 21:16 12/01/20 21:16 12/01/20 21:16 Results - Labs 12/02/20 10:58 12/02/20 10:58 Abnormal Lab Results - Last 24 Hours (Table) 12/01/20 12/01/20 12/01/20 Range/Units 21:53 21:53 21:53 WBC 13.6 H (3.8-10.6) k/uL RDW 15.6 H (11.5-15.5) % Neutrophils # 11.4 H (1.3-7.7) k/uL APTT 21.4 L (22.0-30.0) sec Sodium 136 L (137-145) mmol/L Chloride (98-107) mmol/L Carbon Dioxide 21 L (22-30) mmol/L Glucose 143 H (74-99) mg/dL AST 129 H (14-36) U/L ALT 48 H (4-34) U/L Coronavirus (PCR) (Not Detectd) 12/02/20 12/02/20 12/02/20 Range/Units 06:10 10:58 10:58 WBC (3.8-10.6) k/uL RDW 15.9 H (11.5-15.5) % Neutrophils # (1.3-7.7) k/uL APTT (22.0-30.0) sec Sodium (137-145) mmol/L Chloride 109 H (98-107) mmol/L Carbon Dioxide (22-30) mmol/L Glucose (74-99) mg/dL AST 77 H (14-36) U/L ALT 52 H (4-34) U/L Coronavirus (PCR) Detected A (Not Detectd) Diabetes panel 12/01/20 12/02/20 Range/Units 21:53 10:58 Sodium 136 L 138 (137-145) mmol/L Potassium 4.2 4.2 (3.5-5.1) mmol/L Chloride 104 109 H (98-107) mmol/L Carbon Dioxide 21 L 24 (22-30) mmol/L BUN 10 7 (7-17) mg/dL Creatinine 0.91 0.82 (0.52-1.04) mg/dL Glucose 143 H 93 (74-99) mg/dL Calcium 9.6 8.5 (8.4-10.2) mg/dL AST 129 H 77 H (14-36) U/L ALT 48 H 52 H (4-34) U/L Alkaline Phosphatase 117 104 (38-126) U/L Total Protein 7.3 6.7 (6.3-8.2) g/dL Albumin 4.1 3.6 (3.5-5.0) g/dL Calcium panel 12/01/20 12/02/20 Range/Units 21:53 10:58 Calcium 9.6 8.5 (8.4-10.2) mg/dL Albumin 4.1 3.6 (3.5-5.0) g/dL Pituitary panel 12/01/20 12/02/20 Range/Units 21:53 10:58 Sodium 136 L 138 (137-145) mmol/L Potassium 4.2 4.2 (3.5-5.1) mmol/L Chloride 104 109 H (98-107) mmol/L Carbon Dioxide 21 L 24 (22-30) mmol/L BUN 10 7 (7-17) mg/dL Creatinine 0.91 0.82 (0.52-1.04) mg/dL Glucose 143 H 93 (74-99) mg/dL Calcium 9.6 8.5 (8.4-10.2) mg/dL Adrenal panel 12/01/20 12/02/20 Range/Units 21:53 10:58 Sodium 136 L 138 (137-145) mmol/L Potassium 4.2 4.2 (3.5-5.1) mmol/L Chloride 104 109 H (98-107) mmol/L Carbon Dioxide 21 L 24 (22-30) mmol/L BUN 10 7 (7-17) mg/dL Creatinine 0.91 0.82 (0.52-1.04) mg/dL Glucose 143 H 93 (74-99) mg/dL Calcium 9.6 8.5 (8.4-10.2) mg/dL Total Bilirubin 0.5 0.5 (0.2-1.3) mg/dL AST 129 H 77 H (14-36) U/L ALT 48 H 52 H (4-34) U/L Alkaline Phosphatase 117 104 (38-126) U/L Total Protein 7.3 6.7 (6.3-8.2) g/dL Albumin 4.1 3.6 (3.5-5.0) g/dL Assessment and Plan (1) Acute cholecystitis Current Visit: Yes Status: Acute Code(s): K81.0 - ACUTE CHOLECYSTITIS SNOMED Code(s): 92248747 (2) Morbid obesity due to excess calories Current Visit: Yes Status: Acute Code(s): E66.01 - MORBID (SEVERE) OBESITY DUE TO EXCESS CALORIES SNOMED Code(s): 092268805 (3) Morbid obesity with BMI of 40.0-44.9, adult Current Visit: Yes Status: Acute Code(s): E66.01 - MORBID (SEVERE) OBESITY DUE TO EXCESS CALORIES; Z68.41 - BODY MASS INDEX [BMI]40.0-44.9, ADULT SNOMED Code(s): 559306125 (4) Cholecystitis Current Visit: Yes Status: Acute Code(s): K81.9 - CHOLECYSTITIS, UNSPECIFIED SNOMED Code(s): 72048949 (5) Leukocytosis Current Visit: Yes Status: Acute Code(s): D72.829 - ELEVATED WHITE BLOOD CELL COUNT, UNSPECIFIED SNOMED Code(s): 455272453 (6) Transaminitis Current Visit: Yes Status: Acute Code(s): R74.01 - ELEVATION OF LEVELS OF LIVER TRANSAMINASE LEVELS SNOMED Code(s): 698985647
[2020-12-02] MEDS: GABAPENTIN 300 MG CAP PO SCH ×3 (14:30→22:28)
[2020-12-02] MEDS: HEPARIN SODIUM,PORCINE 5,000 UNIT/ML 1 ML VIAL SQ SCH ×2 (14:30→16:41)
[2020-12-02] MEDS: PANTOPRAZOLE 40 MG/10 ML VIAL IV SCH (14:30)
[2020-12-02] MEDS: metroNIDAZOLE-NS PMX 500 MG in SALINE 1 100ML.BAG IVPB SCH ×2 (14:30→16:41)
--- NOTE | 2020-12-02 23:57 | P.PN ---
Progress Note - Text Progress Note Date: 12/02/20 Case deferred due patient and staff safety of fatigue and very late case. Patient reevaluated this evening and reports feeling better after IV antibiotics. She is tolerating sandwich. With her active Covid diagnosis, patient is elevated risk for complicated surgical post operative outcomes per Options including completing quarantine and outpatient cholecystectomy and described with discharge home on low-fat diet. Patient was agreeable plan. Consultation to dietitian for low-fat diet. Continue antibiotics. Telehealth outpatient for cholecystectomy.
[2020-12-03] MEDS: HYDROmorphone 0.5 MG/0.5 ML SYRINGE IVP PRN (01:36)
[2020-12-03] MEDS: HEPARIN SODIUM,PORCINE 5,000 UNIT/ML 1 ML VIAL SQ SCH ×2 (01:42→08:04)
[2020-12-03] MEDS: KETOROLAC 15 MG/ML 1 ML VIAL IVP SCH ×3 (01:42→14:11)
[2020-12-03] MEDS: metroNIDAZOLE-NS PMX 500 MG in SALINE 1 100ML.BAG IVPB SCH ×2 (01:42→08:04)
[2020-12-03] MEDS: SODIUM CHLORIDE 0.9% 1,000 ML IV SCH ×2 (01:43→09:24)
[2020-12-03] MEDS: PANTOPRAZOLE 40 MG/10 ML VIAL IV SCH (08:04)
[2020-12-03] MEDS: GABAPENTIN 300 MG CAP PO SCH (08:05)
[2020-12-03] MEDS: PIPERACILLIN-TAZOBACTAM 3.375 GM in SODIUM CHLORIDE 0.9% 100 ML IVPB SCH (09:24)
[2020-12-03 13:17] VITALS: BMI 42.9
[2020-12-03 14:18] VITALS: BP 127/82; PULSE 100; RESP 16; TEMP 97.6
--- NOTE | 2020-12-03 14:23 | P.DS ---
Providers Date of admission: 12/02/20 01:53 Expected date of discharge: 12/03/20 Attending physician: Yvette Ndiaye Primary care physician: Jin Brink MD Hospital Course: Discharge diagnosis 1. Acute cholecystitis 2. Morbid obesity due to excess calories, BMI 42.9 3. Coronavirus positive Hospital course The patient is a 45-year-old female recently diagnosed with coronavirus 4 days ago who presents with 1 day history of epigastric including right upper quadrant abdominal pain. She reports her last meal was [place] food. Her severe right upper quadrant abdominal pain started 5:30 yesterday following her meal. She does report nausea. No active emesis. She also has previous similar attacks less than 9 months ago. At that time she did not seek any emergent medical attention in the hospital. She has known history of gallstones. She presents with right upper quadrant down pain and diagnostic studies for cholecystitis. Patient started on IV antibiotics. Her abdominal pain has resolved. She is tolerating diet. She is afebrile. Normal white count. Patient will be discharged home to complete a further 5 more days of antibiotics for her acute cholecystitis. And then we'll proceed with robotic cholecystectomy by Dr. Ndiaye after patient completes her Covid quarantine. Patient is stable for discharge. Physician Automatic Centrifugal Station Operator note has been reviewed by physician. Signing provider agrees with the documented findings, assessment, and plan of care. Patient Condition at Discharge: Stable Plan - Discharge Summary Discharge Rx Participant: Yes New Discharge Prescriptions: New Amoxicillin/Potassium Clav [Augmentin 875-125 Tablet] 1 tab PO Q12HR 5 Days #10 tab Continue Cetirizine HCl [Zyrtec] 10 mg PO DAILY Topiramate [Topamax] 25 mg PO DAILY ZOLMitriptan 5 mg PO DAILY PRN PRN Reason: Migraine Headache Cholecalciferol [Vitamin D3 (25 Mcg = 1000 Iu)] 75 mcg PO DAILY Discharge Medication List Cetirizine HCl [Zyrtec] 10 mg PO DAILY 05/23/15 [History] Cholecalciferol [Vitamin D3 (25 Mcg = 1000 Iu)] 75 mcg PO DAILY 12/02/20 [History] Topiramate [Topamax] 25 mg PO DAILY 12/02/20 [History] ZOLMitriptan 5 mg PO DAILY PRN 12/02/20 [History] Amoxicillin/Potassium Clav [Augmentin 875-125 Tablet] 1 tab PO Q12HR 5 Days #10 tab 12/03/20 [Rx] Follow up Appointment(s)/Referral(s): Jin Brnik MD [Primary Care Provider] - 1-2 days Yvette Ndiaye MD [STAFF PHYSICIAN] - 12/10/20 Activity/Diet/Wound Care/Special Instructions: Patient is to have teleconference appointment on December [address] Ndiaye Low-fat diet Activity as tolerated Discharge Disposition: HOME SELF-CARE
== END 2020-12-03 15:05 | disposition home or self-care (01) ==
LOC: EC 20:59 → 1SOBS 12-02 01:53 → 6NMEDSUR 12-02 12:46
PROVIDERS: ADMIT Surgery Plastic and Reconstructive Surgery; ATTEND Surgery Plastic and Reconstructive Surgery
DX: K80.00 Calculus of gallbladder with acute cholecystitis without obstruction (principal); E66.01 Morbid (severe) obesity due to excess calories; Z68.41 Body mass index [BMI] 40.0-44.9, adult; U07.1 COVID-19; G43.909 Migraine, unspecified, not intractable, without status migrainosus; R00.2 Palpitations; R42 Dizziness and giddiness; R74.01 Elevation of levels of liver transaminase levels; Z79.899 Other long term (current) drug therapy; Z79.1 Long term (current) use of non-steroidal anti-inflammatories (NSAID)
CPT/HCPCS: 96376 ×2; 96361 ×2; 96366 ×3; 96367 ×2; 96372 ×2; 96375 ×2; 96365; 99285; 36415; 93005; 80053 ×2; 82150; 83690; 83735; 84484; 85025 ×2; 85610; 85730; 81003; 87040; 87635; 71046; 74018; 76705; G0378 ×3; J2543 ×2; J1644 ×2; J2405; J0295; J0131; C9113; J1170 ×2

== ENCOUNTER 2020-12-26 12:10 | Day surgery (SDC) | payer BC ==
[2020-12-23 08:35] VITALS: BMI 42.7
--- NOTE | 2020-12-26 11:04 | P.GSHP ---
History of Present Illness H&P Date: 12/26/20 CHIEF COMPLAINT: Cholecystitis HISTORY OF PRESENT ILLNESS: The patient is a 45-year-old female who presents with history of epigastric including right upper quadrant abdominal pain. She underwent diagnostic studies for her gallbladder. Separately her clinical picture was consistent with cholecystitis. Now she presents for surgical intervention. PAST MEDICAL HISTORY: Please see list PAST SURGICAL HISTORY: Please see list MEDICATIONS: Please see list ALLERGIES: Please see list SOCIAL HISTORY: Please see list FAMILY HISTORY: Please see list REVIEW OF ORGAN SYSTEMS: CONSTITUTIONAL: No reports of fevers or chills. PHYSICAL EXAM: VITAL SIGNS: Afebrile vital signs stable GENERAL: Well-developed pleasant in no acute distress. HEENT: No scleral icterus. Extraocular movements grossly intact. Moist buccal mucosa. NECK: Supple without lymphadenopathy. CHEST: Unlabored respirations. Equal bilateral excursions. CARDIOVASCULAR: Regular rate regular rhythm rhythm. Distal 2+ pulses. ABDOMEN: Soft, nondistended. Tender along the epigastrium and right upper quadrant. MUSCULOSKELETAL: No clubbing, cyanosis, or edema. NEURO: Cranial nerves II to XII within normal limits. No focal or lateralizing signs. PSYCH: Alert and oriented to person, place and time. SKIN: Well-perfused good skin turgor. ASSESSMENT: 1. Epigastric and right upper quadrant abdominal pain 2. Chronic cholecystitis 3. Symptomatic gallstones. PLAN: 1. Will need a robotic cholecystectomy possible open. Benefits and risks were described. 2. Heparin for DVT prophylaxis 5000 units. 3. Antibiotic prophylaxis. Past Medical History Additional Past Medical History / Comment(s): Vertigo, migraines, hx palpitations, postive COVD test 12/02/20-no symptoms, EEG showed possibel seizures, hx ulcer, gallstone, History of Any Multi-Drug Resistant Organisms: None Reported Past Surgical History: Section, Orthopedic Surgery Additional Past Surgical History / Comment(s): ORIF Right elbow/ humerus-2 pins Past Anesthesia/Blood Transfusion Reactions: No Reported Reaction Smoking Status: Former smoker - Past Family History Mother Family Medical History: Cancer Additional Family Medical History / Comment(s): skin cancer Medications and Allergies Home Medications Medication Instructions Recorded Confirmed Type Cetirizine HCl [Zyrtec] 10 mg PO DAILY 05/23/15 12/23/20 History Topiramate [Topamax] 25 mg PO DAILY 12/02/20 12/23/20 History ZOLMitriptan 5 mg PO DAILY PRN 12/02/20 12/23/20 History Baclofen(Dose Unknown) 1 tab PO DIRECTED PRN 12/23/20 12/23/20 History Cholecalciferol (Vitamin D3) 75 mcg PO DAILY 12/23/20 12/23/20 History [Vitamin D3 (3000 Iu)] Ibuprofen [Motrin] 400 mg PO Q8HR PRN 12/23/20 12/23/20 History Allergies Allergy/AdvReac Type Severity Reaction Status Date / Time No Known Allergies Allergy Verified 12/23/20 08:23
[~2020-12-26 12:10] MED LIST: ACETAMINOPHEN TAB 500 MG TAB PO PRN; DEXAMETHASONE SOD PHOSPHATE 4 MG/ML 1 ML VIAL IV ONE; GABAPENTIN 300 MG CAP PO PRN; HEPARIN SODIUM,PORCINE/PF 5,000 UNIT/0.5 ML SYRINGE SQ PRN; HYDROmorphone 0.5 MG/0.5 ML SYRINGE IVP PRN; INDOCYANINE GREEN 25 MG VIAL IV PRN; LACTATED RINGERS 1,000 ML IV SCH; MELOXICAM 7.5 MG TAB PO PRN; ONDANSETRON 4 MG/2 ML VIAL IVP ONE; SCOPOLAMINE 1.5MG/72HR PATCH TRANSDERM PRN
[2020-12-26] MEDS ORDERED: LIDOCAINE 1% (10MG/ML) FOR IV START INTRADERMA ONE (13:15)
[2020-12-26 13:41] LABS: Albumin 4.2 g/dL (3.5-5.0); Calcium 9.1 mg/dL (8.4-10.2); Total Bilirubin 0.8 mg/dL (0.2-1.3); Total Protein 7.6 g/dL (6.3-8.2)
[2020-12-26 13:44] LABS: Potassium 4.4 mmol/L (3.5-5.1)
[2020-12-26] MEDS ORDERED: SIMETHICONE 80 MG CHEWABLE PO PRN (14:25)
--- NOTE | 2020-12-26 14:29 | P.OP ---
Date of Procedure: 12/26/20 Description of Procedure: SURGEON: YVETTE NDIAYE MD PREOPERATIVE DIAGNOSES: 1. Acute cholecystitis 2. Symptomatic gallstone 3. Migraine disorder 4. Seizure disorder 5. Elevated transaminases 6. Morbid obesity due to excess calories, BMI 44.4 POSTOPERATIVE DIAGNOSES: 1. Acute cholecystitis 2. Symptomatic gallstone 3. Migraine disorder 4. Seizure disorder 5. Elevated transaminases 6. Morbid obesity due to excess calories, BMI 44.4 7. Peritoneal adhesions, right upper quadrant OPERATION: 1. Robotic-assisted da Francisco Xi laparoscopic lysis of adhesions, right upper quadrant 2. Robotic-assisted da Francisco Xi laparoscopic cholecystectomy, multiport with FIREFLY ESTIMATED BLOOD LOSS: 5 mL. SPECIMENS REMOVED: Gallbladder. COMPLICATIONS: None. OPERATIVE FINDINGS: 1. Peritoneal adhesions over gallbladder, pericholecystic with features of chronic cholecystitis 2. Large gallstones over 2 cm in size INDICATIONS: The patient is a 45-year-old female who presents with symptomatic gallstones and recent acute cholecystitis. Robotic assisted laparoscopic approach was described. Benefits and risks of the procedure including but not limited to bleeding, infection, injury to the biliary tree was described. Informed consent was obtained. DESCRIPTION OF PROCEDURE: Patient was brought to the operating room, placed in supine position. After general induction, the abdomen had been prepped and draped in standard sterile fashion. The robotic da Francisco XI system was primed. After a timeout protocol was performed, the patient had been prepped and draped in standard sterile fashion. The patient was injected with indocyanine green. A 5 mm 0 degrees laparoscopic trocar entry was performed along the left upper quadrant. The abdomen insufflated to 15 mmHg pressure which was tolerated well. Diagnostic laparoscopy demonstrated no injury to bowel viscera or mesentery. The liver surface was unremarkable. Next, two 8 mm robotic ports were placed along the right upper abdomen. The camera 8-mm port was maintained along the epigastrium. Another 8 mm port was placed along the left upper abdominal wall after exchanging the 5 mm port. Please note that the ports were placed at least 10 to 15 cm away from the target anatomy of the gallbladder. The robot was docked along the left lateral abdomen. The patient was repositioned in reverse Trendelenburg position. Using a grasper for arm 3, a grasper for arm 4, including hook cautery for arm 1, the robotic system was docked and primed as described. Instruments were interchanged by the collections assistant including hook cautery, Bovie cautery and clip appliers. I had sat at the console. The gallbladder was scarred with peritoneal adhesions. Lysis of adhesions was performed to free the gallbladder from the surrounding tissues. Next attention was brought to the infundibulum and cystic structures. The infundibulum and cystic duct were dissected free from surrounding tissues. The cystic duct was isolated. FIREFLY was used to identify the cystic artery and cystic structures. A critical view of safety was obtained. Large PLASTIC clips were used throughout the entire case. Using a clip joiner helper, 2 clips were placed at the junction of the infundibulum and cystic duct. The cystic duct was divided between clips. Next, the cystic artery was similarly clipped and cauterized. Electro-Bovie cautery was used to remove the gallbladder from the hepatic fossa. Hemostasis was checked and found to be adequate. The robot was undocked. I re-scrubbed into the case. Using a 10 mm Endo Catch bag via the left upper quadrant incision, the specimen was removed from the abdominal cavity. All pneumoperitoneum instruments were evacuated from the abdominal cavity. The incisions were reapproximated using 4-0 Monocryl in an interrupted subcuticular fashion. Fascial defects were less than 8 mm in size. Please note along the trocar sites, local anesthetic was placed as a field block prior to insertion of all instruments. Liquid glue was applied to the skin. At the end of the procedure needle, sponge, and instrument count had been verified correct by the surgical assist. The patient was transferred to postanesthesia care unit in stable condition. Intraoperative films were shared with the patient's family. Plan - Discharge Summary Discharge Rx Participant: Yes New Discharge Prescriptions: New RX: Simethicone [Gas-X] 125 mg PO AC-TID PRN #20 capsule PRN Reason: Abdominal Distention RX: Ibuprofen [Motrin] 600 mg PO Q8HR PRN #30 tab PRN Reason: Pain Acetaminophen Tab [Tylenol Tab] 1,000 mg PO Q6HR PRN #30 tablet PRN Reason: Pain Continue RX: Cetirizine HCl [Zyrtec] 10 mg PO DAILY RX: Topiramate [Topamax] 25 mg PO DAILY RX: Cholecalciferol (Vitamin D3) [Vitamin D3 (3000 Iu)] 75 mcg PO DAILY Baclofen(Dose Unknown) 1 tab PO DIRECTED PRN PRN Reason: Pain RX: ZOLMitriptan 5 mg PO DAILY PRN PRN Reason: Migraine Headache Discontinued Ibuprofen [Motrin] 400 mg PO Q8HR PRN PRN Reason: migraines Discharge Medication List RX: Cetirizine HCl [Zyrtec] 10 mg PO DAILY 05/23/15 [History] RX: Topiramate [Topamax] 25 mg PO DAILY 12/02/20 [History] RX: ZOLMitriptan 5 mg PO DAILY PRN 12/02/20 [History] Baclofen(Dose Unknown) 1 tab PO DIRECTED PRN 12/23/20 [History] RX: Cholecalciferol (Vitamin D3) [Vitamin D3 (3000 Iu)] 75 mcg PO DAILY 12/23/20 [History] Acetaminophen Tab [Tylenol Tab] 1,000 mg PO Q6HR PRN #30 tablet 12/26/20 [Rx] RX: Ibuprofen [Motrin] 600 mg PO Q8HR PRN #30 tab 12/26/20 [Rx] RX: Simethicone [Gas-X] 125 mg PO AC-TID PRN #20 capsule 12/26/20 [Rx] Follow up Appointment(s)/Referral(s): Yvette Ndiaye MD [STAFF PHYSICIAN] - 12/31/20 Patient Instructions/Handouts: *Surgery [facility] - Scopalamine Patch Instructions, Laparoscopic Cholecystectomy (DC), Low Fat Diet (DC) Activity/Diet/Wound Care/Special Instructions: Recommend low-fat diet for the next 2 days. No lifting over 10 pounds in 2 weeks until January 09. May shower. No bath tub soaks for two weeks until January 09 Diet as tolerated. Use Tylenol, simethicone and ibuprofen or Aleve scheduled for the next 24-48 hours for best pain relief. Use ice along incisions for today to prevent swelling. Discharge Disposition: HOME SELF-CARE
[2020-12-26] MEDS ORDERED: SUCCINYLCHOLINE CHLORIDE 100 MG/5 ML SYR IV ONE (14:32)
[2020-12-26] MEDS ORDERED: MIDAZOLAM 2 MG/2 ML VIAL ONE (14:32)
[2020-12-26] MEDS ORDERED: PHENYLEPHRINE-0.9% NACL SYG 1,000 MCG/10 ML SYRINGE ONE (14:32)
[2020-12-26] MEDS ORDERED: NEOSTIGMINE 1 MG/ML 10 ML VIAL ONE (14:32)
[2020-12-26] MEDS ORDERED: fentaNYL (PF) 50 MCG/ML 2 ML AMP ONE (14:32)
[2020-12-26] MEDS ORDERED: LIDOCAINE 1% INJ 10MG/ML (20 ML MDV) ONE (14:32)
[2020-12-26] MEDS ORDERED: GLYCOPYRROLATE 0.2 MG/ML 2 ML VIAL ONE (14:32)
[2020-12-26] MEDS ORDERED: PROPOFOL 10 MG/ML 20 ML VIAL IV ONE (14:32)
[2020-12-26] MEDS ORDERED: ROCURONIUM 10 MG/ML (5 ML VIAL) IV ONE (14:32)
[2020-12-26] MEDS ORDERED: KETOROLAC 15 MG/ML 1 ML VIAL ONE (14:32)
[2020-12-26] MEDS ORDERED: LIDOCAINE 1%-EPI 1:100,000 20 ML VIAL SQ ONE ×2 (14:42→14:59)
[2020-12-26] MEDS ORDERED: LACTATED RINGERS 1,000 ML IV ONE (15:21)
--- NOTE | 2020-12-26 15:35 | P.PCN ---
Date of Procedure: 12/26/20 Description of Procedure: SURGEON: YVETTE NDIAYE MD PREOPERATIVE DIAGNOSES: 1. Acute cholecystitis 2. Symptomatic gallstone 3. Migraine disorder 4. Seizure disorder 5. Elevated transaminases 6. Morbid obesity due to excess calories, BMI 44.4 POSTOPERATIVE DIAGNOSES: 1. Acute cholecystitis 2. Symptomatic gallstone 3. Migraine disorder 4. Seizure disorder 5. Elevated transaminases 6. Morbid obesity due to excess calories, BMI 44.4 7. Peritoneal adhesions, right upper quadrant OPERATION: 1. Robotic-assisted da Francisco Xi laparoscopic lysis of adhesions, right upper quadrant 2. Robotic-assisted da Francisco Xi laparoscopic cholecystectomy, multiport with FIREFLY ESTIMATED BLOOD LOSS: 5 mL. SPECIMENS REMOVED: Gallbladder. COMPLICATIONS: None. OPERATIVE FINDINGS: 1. Peritoneal adhesions over gallbladder, pericholecystic with features of chronic cholecystitis 2. Large gallstones over 2 cm in size INDICATIONS: The patient is a 45-year-old female who presents with symptomatic gallstones and recent acute cholecystitis. Robotic assisted laparoscopic approach was described. Benefits and risks of the procedure including but not limited to bleeding, infection, injury to the biliary tree was described. Informed consent was obtained. DESCRIPTION OF PROCEDURE: Patient was brought to the operating room, placed in supine position. After general induction, the abdomen had been prepped and draped in standard sterile fashion. The robotic da Francisco XI system was primed. After a timeout protocol was performed, the patient had been prepped and draped in standard sterile fashion. The patient was injected with indocyanine green. A 5 mm 0 degrees laparoscopic trocar entry was performed along the left upper quadrant. The abdomen insufflated to 15 mmHg pressure which was tolerated well. Diagnostic laparoscopy demonstrated no injury to bowel viscera or mesentery. The liver surface was unremarkable. Next, two 8 mm robotic ports were placed along the right upper abdomen. The camera 8-mm port was maintained along the epigastrium. Another 8 mm port was placed along the left upper abdominal wall after exchanging the 5 mm port. Please note that the ports were placed at least 10 to 15 cm away from the target anatomy of the gallbladder. The robot was docked along the left lateral abdomen. The patient was repositioned in reverse Trendelenburg position. Using a grasper for arm 3, a grasper for arm 4, including hook cautery for arm 1, the robotic system was docked and primed as described. Instruments were interchanged by the produce assistant including hook cautery, Bovie cautery and clip appliers. I had sat at the console. The gallbladder was scarred with peritoneal adhesions. Lysis of adhesions was performed to free the gallbladder from the surrounding tissues. Next attention was brought to the infundibulum and cystic structures. The infundibulum and cystic duct were dissected free from surrounding tissues. The cystic duct was isolated. FIREFLY was used to identify the cystic artery and cystic structures. A critical view of safety was obtained. Large PLASTIC clips were used throughout the entire case. Using a clip outboard motor tester, 2 clips were placed at the junction of the infundibulum and cystic duct. The cystic duct was divided between clips. Next, the cystic artery was similarly clipped and cauterized. Electro-Bovie cautery was used to remove the gallbladder from the hepatic fossa. Hemostasis was checked and found to be adequate. The robot was undocked. I re-scrubbed into the case. Using a 10 mm Endo Catch bag via the left upper quadrant incision, the specimen was removed from the abdominal cavity. All pneumoperitoneum instruments were evacuated from the abdominal cavity. The incisions were reapproximated using 4-0 Monocryl in an interrupted subcuticular fashion. Fascial defects were less than 8 mm in size. Please note along the trocar sites, local anesthetic was placed as a field block prior to insertion of all instruments. Liquid glue was applied to the skin. At the end of the procedure needle, sponge, and instrument count had been verified correct by the electronic train control technician. The patient was transferred to postanesthesia care unit in stable condition. Intraoperative films were shared with the patient's family. Plan - Discharge Summary Discharge Rx Participant: Yes New Discharge Prescriptions: New Simethicone [Gas-X] 125 mg PO AC-TID PRN #20 capsule PRN Reason: Abdominal Distention Ibuprofen [Motrin] 600 mg PO Q8HR PRN #30 tab PRN Reason: Pain Acetaminophen Tab [Tylenol Tab] 1,000 mg PO Q6HR PRN #30 tablet PRN Reason: Pain Continue Cetirizine HCl [Zyrtec] 10 mg PO DAILY Topiramate [Topamax] 25 mg PO DAILY Cholecalciferol (Vitamin D3) [Vitamin D3 (3000 Iu)] 75 mcg PO DAILY Baclofen(Dose Unknown) 1 tab PO DIRECTED PRN PRN Reason: Pain ZOLMitriptan 5 mg PO DAILY PRN PRN Reason: Migraine Headache Discontinued Ibuprofen [Motrin] 400 mg PO Q8HR PRN PRN Reason: migraines Discharge Medication List Cetirizine HCl [Zyrtec] 10 mg PO DAILY 05/23/15 [History] Topiramate [Topamax] 25 mg PO DAILY 12/02/20 [History] ZOLMitriptan 5 mg PO DAILY PRN 12/02/20 [History] Baclofen(Dose Unknown) 1 tab PO DIRECTED PRN 12/23/20 [History] Cholecalciferol (Vitamin D3) [Vitamin D3 (3000 Iu)] 75 mcg PO DAILY 12/23/20 [History] Acetaminophen Tab [Tylenol Tab] 1,000 mg PO Q6HR PRN #30 tablet 12/26/20 [Rx] Ibuprofen [Motrin] 600 mg PO Q8HR PRN #30 tab 12/26/20 [Rx] Simethicone [Gas-X] 125 mg PO AC-TID PRN #20 capsule 12/26/20 [Rx] Follow up Appointment(s)/Referral(s): Yvette Ndiaye MD [STAFF PHYSICIAN] - 12/31/20 Patient Instructions/Handouts: *Surgery [facility] - Scopalamine Patch Instructions, Low Fat Diet (DC), Laparoscopic Cholecystectomy (DC) Activity/Diet/Wound Care/Special Instructions: Recommend low-fat diet for the next 2 days. No lifting over 10 pounds in 2 weeks until January 09. May shower. No bath tub soaks for two weeks until January 09 Diet as tolerated. Use Tylenol, simethicone and ibuprofen or Aleve scheduled for the next 24-48 hours for best pain relief. Use ice along incisions for today to prevent swelling. Discharge Disposition: HOME SELF-CARE
[2020-12-26] MEDS ORDERED: ONDANSETRON 4 MG/2 ML VIAL IVP ONE (15:37)
[2020-12-26 15:48] VITALS: TEMP 96.8
[2020-12-26] MEDS ORDERED: diphenhydrAMINE 50 MG/ML 1 ML VIAL IVP ONE (15:48)
[2020-12-26 16:06] VITALS: RESP 16
[2020-12-26 16:58] VITALS: BP 116/79; PULSE 83
== END 2020-12-26 17:28 | disposition home or self-care (01) ==
LOC: OR 12:10
PROVIDERS: ATTEND Surgery Plastic and Reconstructive Surgery
DX: K81.1 Chronic cholecystitis (principal); G43.909 Migraine, unspecified, not intractable, without status migrainosus; R42 Dizziness and giddiness; R00.2 Palpitations; Z87.891 Personal history of nicotine dependence; G40.909 Epilepsy, unspecified, not intractable, without status epilepticus; K66.0 Peritoneal adhesions (postprocedural) (postinfection); E66.01 Morbid (severe) obesity due to excess calories; Z68.41 Body mass index [BMI] 40.0-44.9, adult; R74.01 Elevation of levels of liver transaminase levels; Z98.891 History of uterine scar from previous surgery; Z98.890 Other specified postprocedural states; Z79.899 Other long term (current) drug therapy
CPT/HCPCS: 47564; S2900; 80053; 81025; 88304

== ENCOUNTER 2020-12-29 08:30 | Emergency (ER) | payer BC ==
[2020-12-29 08:35] VITALS: BP 144/97; PULSE 76; RESP 16; TEMP 98.2
[2020-12-29] MEDS ORDERED: ONDANSETRON 4 MG/2 ML VIAL IVP STA (08:47)
[2020-12-29] MEDS ORDERED: SODIUM CHLORIDE 0.9% 1,000 ML IV STA (08:47)
--- NOTE | 2020-12-29 08:59 | ED ---
Nausea/Vomiting/Diarrhea HPI - General Chief complaint: Nausea/Vomiting/Diarrhea Stated complaint: NAUSEA Time Seen by Provider: 12/29/20 08:38 Source: patient Mode of arrival: ambulatory Limitations: no limitations - History of Present Illness Initial comments: Patient is a 45-year-old female presenting to the emergency Department with complaints of nausea and vomiting for the last 4 days. Patient states she had a cholecystectomy performed on , with Dr. Ndiaye, and ever since she has been having nausea and vomiting. She's been unable to keep any food or liquid down. She states she started developing a headache from this. She states her abdominal pain is minimal, no diarrhea, no chest pain or shortness of breath, no fevers or chills. She states she has a follow-up appointment with her surgeon in 2 days but does not feel like she can wait until then. She has no medication at home for her nausea. She has no further complaints at this time. Upon arrival to the ER, her vital signs are stable. - Related Data Home Medications Medication Instructions Recorded Confirmed Cetirizine HCl [Zyrtec] 10 mg PO DAILY 05/23/15 12/29/20 Topiramate [Topamax] 25 mg PO DAILY 12/02/20 12/29/20 ZOLMitriptan 5 mg PO DAILY PRN 12/02/20 12/29/20 Cholecalciferol (Vitamin D3) 75 mcg PO DAILY 12/23/20 12/29/20 [Vitamin D3 (3000 Iu)] Previous Rx's Medication Instructions Recorded Acetaminophen Tab [Tylenol Tab] 1,000 mg PO Q6HR PRN #30 tablet 12/26/20 Ibuprofen [Motrin] 600 mg PO Q8HR PRN #30 tab 12/26/20 Simethicone [Gas-X] 125 mg PO AC-TID PRN #20 capsule 12/26/20 Ondansetron Odt [Zofran Odt] 4 mg PO Q8HR PRN #10 tab 12/29/20 Allergies Allergy/AdvReac Type Severity Reaction Status Date / Time No Known Allergies Allergy Verified 12/29/20 10:05 Review of Systems ROS Statement: Those systems with pertinent positive or pertinent negative responses have been documented in the HPI. ROS Other: All systems not noted in ROS Statement are negative. Past Medical History Additional Past Medical History / Comment(s): Vertigo, migraines, hx palpitations, postive COVD test 12/02/20-no symptoms, EEG showed possibel seizures, hx ulcer, gallstone, History of Any Multi-Drug Resistant Organisms: None Reported Past Surgical History: Section, Cholecystectomy, Orthopedic Surgery Additional Past Surgical History / Comment(s): ORIF Right elbow/ humerus-2 pins Past Anesthesia/Blood Transfusion Reactions: No Reported Reaction Past Psychological History: No Psychological Hx Reported Smoking Status: Former smoker Past Alcohol Use History: None Reported Past Drug Use History: None Reported - Past Family History Mother Family Medical History: Cancer Additional Family Medical History / Comment(s): skin cancer General Exam - General Exam Comments Initial Comments: GENERAL: Patient is well-developed and well-nourished. Patient is nontoxic and in no acute distress. HEAD: Atraumatic, normocephalic. EYES: Pupils equal round and reactive to light, extraocular movements intact, sclera anicteric, conjunctiva are normal. Eyelids were unremarkable. ENT: TMs normal, nares patent, oropharynx clear without exudates. Moist mucous membranes. NECK: Normal range of motion, supple without lymphadenopathy or JVD. LUNGS: Unlabored respirations. Breath sounds clear to auscultation bilaterally and e qual. No wheezes rales or rhonchi. HEART: Regular rate and rhythm without murmurs, rubs or gallops. ABDOMEN: Soft, nontender, normoactive bowel sounds. No guarding, no rebound. No masses appreciated. : Deferred MUSCULOSKELETAL: Normal extremities with adequate strength and normal range of motion, no pitting or edema. No clubbing or cyanosis. NEUROLOGICAL: Patient is alert and oriented x 3. Motor and sensory are also intact. Cranial nerves II through XII grossly intact. Symmetrical smile. Normal speech, normal gait. PSYCH: Normal mood, normal affect. SKIN: Warm, Dry, normal turgor, no rashes. Recent surgical incisions on the abdomen are clean, dry, intact, no signs of infection. Limitations: no limitations Course Vital Signs 12/29/20 08:31 Temperature 98.2 F Pulse Rate 76 Respiratory 16 Rate Blood Pressure 144/97 O2 Sat by Pulse 97 Oximetry Medical Decision Making - Medical Decision Making Patient is a 45-year-old female presenting with nausea and vomiting 3 days. She had cholecystectomy on with Dr. Ndiaye, continues to have nausea and vomiting. Pain is minimal. Vital signs are stable. Labs the side with slight white count 13.8, most likely reactive, sodium is low at 1:30, liver enzymes are slightly increased, urine shows 2+ ketones, no signs of infection. Patient received fluid bolus, pain control for her headache. She reports impro vement in her symptoms. Patient will follow up with her surgeon in a few days. I will send her home with some Zofran for any additional nausea. She is stable for discharge. She is in agreement with this plan of care. Return parameters were discussed with the patient she verbalized understanding. Case discussed with Dr. Barth. - Lab Data Result diagrams: 12/29/20 09:21 12/29/20 09:21 Lab Results 12/29/20 12/29/20 12/29/20 Range/Units 09:21 09:21 09:21 WBC 13.8 H (3.8-10.6) k/uL RBC 4.59 (3.80-5.40) m/uL Hgb 13.9 (11.4-16.0) gm/dL Hct 40.7 (34.0-46.0) % MCV 88.6 (80.0-100.0) fL MCH 30.3 (25.0-35.0) pg MCHC 34.2 (31.0-37.0) g/dL RDW 15.5 (11.5-15.5) % Plt Count 312 (150-450) k/uL MPV 6.8 Neutrophils % 79 % Lymphocytes % 11 % Monocytes % 7 % Eosinophils % 2 % Basophils % 0 % Neutrophils # 11.0 H (1.3-7.7) k/uL Lymphocytes # 1.5 (1.0-4.8) k/uL Monocytes # 0.9 (0-1.0) k/uL Eosinophils # 0.2 (0-0.7) k/uL Basophils # 0.1 (0-0.2) k/uL Sodium 130 L (137-145) mmol/L Potassium 4.0 (3.5-5.1) mmol/L Chloride 95 L (98-107) mmol/L Carbon Dioxide 24 (22-30) mmol/L Anion Gap 11 mmol/L BUN 9 (7-17) mg/dL Creatinine 0.77 (0.52-1.04) mg/dL Est GFR (CKD-EPI)AfAm >90 (>60 ml/min/1.73 sqM) Est GFR (CKD-EPI)NonAf >90 (>60 ml/min/1.73 sqM) Glucose 101 H (74-99) mg/dL Calcium 9.2 (8.4-10.2) mg/dL Total Bilirubin 0.8 (0.2-1.3) mg/dL AST 85 H (14-36) U/L ALT 97 H (4-34) U/L Alkaline Phosphatase 94 (38-126) U/L Total Protein 7.6 (6.3-8.2) g/dL Albumin 4.4 (3.5-5.0) g/dL Urine Color Yellow Urine Appearance Turbid H (Clear) Urine pH 7.0 (5.0-8.0) Ur Specific [place] 1.020 (1.001-1.035) Urine Protein 1+ H (Negative) Urine Glucose (UA) Negative (Negative) Urine Ketones 2+ H (Negative) Urine Blood Negative (Negative) Urine Nitrite Negative (Negative) Urine Bilirubin Negative (Negative) Urine Urobilinogen <2.0 (<2.0) mg/dL Ur Leukocyte Esterase Negative (Negative) Urine RBC 2 (0-5) /hpf Urine WBC <1 (0-5) /hpf Ur Squamous Epith Cells 1 (0-4) /hpf Amorphous Sediment Moderate H (None) /hpf Urine Mucus Occasional H (None) /hpf Disposition Clinical Impression: Postoperative nausea and vomiting, Dehydration Disposition: HOME SELF-CARE Condition: Stable Instructions (If sedation given, give patient instructions): Acute Nausea and Vomiting (ED) Additional Instructions: Please return to the Emergency Department if symptoms worsen or any other concerns. May take additional Zofran every 8 hours as needed. Follow-up with your surgeon as discussed. Prescriptions: Ondansetron Odt [Zofran Odt] 4 mg PO Q8HR PRN #10 tab PRN Reason: Nausea Is patient prescribed a controlled substance at d/c from ED?: No Referrals: Jin Brink MD [Primary Care Provider] - 1-2 days Time of Disposition: 11:46
[2020-12-29 09:34] LABS: Basophils # (A) 0.1 k/uL (0-0.2); Basophils % (A) 0 %; Eosinophils # (A) 0.2 k/uL (0-0.7); Eosinophils % (A) 2 %; HCT 40.7 % (34.0-46.0); HGB 13.9 gm/dL (11.4-16.0); Lymphocytes # (A) 1.5 k/uL (1.0-4.8); Lymphocytes % (A) 11 %; MCH 30.3 pg (25.0-35.0); MCHC 34.2 g/dL (31.0-37.0); MCV 88.6 fL (80.0-100.0); Mean Platelet Volume 6.8; Monocytes # (A) 0.9 k/uL (0-1.0); Monocytes % (A) 7 %; Neutrophils % (A) 79 %; Platelet Count 312 k/uL (150-450); RBC 4.59 m/uL (3.80-5.40); RDW 15.5 % (11.5-15.5); WBC 13.8 k/uL (3.8-10.6)
[2020-12-29 09:47] LABS: ALT 97 U/L (4-34); AST 85 U/L (14-36); African American GFR (CKD) >90 (>60 ml/min/1.73 sqM); Albumin 4.4 g/dL (3.5-5.0); Alkaline Phosphatase 94 U/L (38-126); Anion Gap 11 mmol/L; Blood Urea Nitrogen 9 mg/dL (7-17); Calcium 9.2 mg/dL (8.4-10.2); Carbon Dioxide 24 mmol/L (22-30); Chloride 95 mmol/L (98-107); Glucose 101 mg/dL (74-99); Non-African American GFR(CKD) >90 (>60 ml/min/1.73 sqM); Sodium 130 mmol/L (137-145); Total Bilirubin 0.8 mg/dL (0.2-1.3); Total Protein 7.6 g/dL (6.3-8.2)
[2020-12-29 09:56] LABS: Amorphous Sediment,Urine Moderate /hpf; Appearance,Urine Turbid (Clear); Bilirubin,Urine Negative (Negative); Blood,Urine Negative (Negative); Color,Urine Yellow; Glucose,Urine (UA) Negative (Negative); Ketones,Urine 2+ (Negative); Leukocyte Esterase,Urine Negative (Negative); Mucus,Urine Occasional /hpf; Nitrite,Urine Negative (Negative); Protein,Urine 1+ (Negative); RBC,Urine 2 /hpf (0-5); Squamous Epithelial Cell,Urine 1 /hpf (0-4); Urobilinogen,Urine <2.0 mg/dL (<2.0); WBC,Urine <1 /hpf (0-5)
[2020-12-29] MEDS ORDERED: KETOROLAC 15 MG/ML 1 ML VIAL IVP STA (10:56)
[2020-12-29] MEDS ORDERED: PANTOPRAZOLE 40 MG/10 ML VIAL IVP STA (10:56)
== END 2020-12-29 12:35 | disposition home or self-care (01) ==
LOC: EC 08:30
DX: E86.0 Dehydration (principal); Z87.891 Personal history of nicotine dependence; Z90.49 Acquired absence of other specified parts of digestive tract
CPT/HCPCS: 36415; 80053; 85025; 81001; 99284; 96374; 96375 ×2; J2405; J1885; C9113

== ENCOUNTER → 2021-01-06 | Outpatient (CLI) | payer BC ==
[2021-01-06 18:47] LABS: Eosinophils # (A) 0.26 X 10*3/uL (0.04-0.35); Eosinophils % (A) 2.6 %; HCT 41.7 % (37.2-46.3); HGB 12.5 g/dL (12.0-15.0); Lymphocytes % (A) 27.3 %; MCH 28.3 pg (27.0-32.0); MCV 94.6 fL (80.0-97.0); Mean Platelet Volume 10.3 fL (9.5-12.2); Monocytes # (A) 0.83 X 10*3/uL (0.20-1.00); Monocytes % (A) 8.4 %; Neutrophils # (A) 5.93 X 10*3/uL (1.80-7.70); Platelet Count 365 X 10*3/uL (140-440); RBC 4.41 X 10*6/uL (4.10-5.20); RDW 15.9 % (11.5-14.5); WBC 9.89 X 10*3/uL (4.50-10.00)
[2021-01-06 22:19] LABS: African American GFR (CKD) 88.2 (60.0-200.0); Albumin 4.3 g/dL (3.80-4.90); Albumin/Globulin Ratio 1.59 (1.60-3.17); Anion Gap 9.6 mmol/L (4.00-12.00); BUN/Creat Ratio 13.33 Ratio (12.00-20.00); Calcium 9.1 mg/dL (8.7-10.3); Carbon Dioxide 21.4 mmol/L (21.6-31.8); Globulin 2.7 g/dL (1.6-3.3); Non-African American GFR(CKD) 76.1 (60.0-200.0); Potassium 4.7 mmol/L (3.5-5.5); Total Bilirubin 0.3 mg/dL (0.3-1.2)
== END | disposition home or self-care (01) ==
LOC: LABWHC1 09:33
PROVIDERS: ATTEND Surgery Plastic and Reconstructive Surgery
DX: K80.10 Calculus of gallbladder with chronic cholecystitis without obstruction (principal)
CPT/HCPCS: 36415; 80053; 85025

== ENCOUNTER 2023-06-26 09:29 | Emergency (ER) | payer BC ==
[2023-06-26 09:49] VITALS: TEMP 97
[2023-06-26] MEDS ORDERED: ASPIRIN 81 MG PO STA (09:49)
[2023-06-26] MEDS ORDERED: NITROGLYCERIN OINT 1 INCH/GM PACKET TOPICAL STA (09:49)
--- NOTE | 2023-06-26 09:51 | ED ---
General Adult HPI - General Chief complaint: Chest Pain Stated complaint: Chest Pain Time Seen by Provider: 06/26/23 09:35 Source: patient, RN notes reviewed, old records reviewed Mode of arrival: wheelchair Limitations: no limitations - History of Present Illness Initial comments: This is a 47-year-old female presents emergency department she is an ex-smoker. Patient has no other risk factors for cardiac disease. Patient states at 5:00 this point which woke up she had a little bit of a stabbing pain in the center of her chest and felt it may have gone to her back a little. Patient states she was not short of breath she felt a little sweaty at that time. Patient states the pain continues currently. Patient states she's had quite a bit of a cough over the last few days. Patient denies any recent fever chills per patient denies any abdominal pain patient denies nausea vomiting diarrhea. Patient denies lightheadedness dizziness or palpitations. Patient denies any swelling to the legs or calf tenderness. Patient denies any family history of heart disease. - Related Data Home Medications Medication Instructions Recorded Confirmed Cetirizine HCl [Zyrtec] 10 mg PO DAILY 05/23/15 01/02/21 Topiramate [Topamax] 25 mg PO DAILY 12/02/20 01/02/21 ZOLMitriptan 5 mg PO DAILY PRN 12/02/20 01/02/21 Cholecalciferol (Vitamin D3) 75 mcg PO DAILY 12/23/20 01/02/21 [Vitamin D3 (3000 Iu)] Previous Rx's Medication Instructions Recorded Acetaminophen Tab [Tylenol Tab] 1,000 mg PO Q6HR PRN #30 tablet 12/26/20 Ibuprofen [Motrin] 600 mg PO Q8HR PRN #30 tab 12/26/20 Simethicone [Gas-X] 125 mg PO AC-TID PRN #20 capsule 12/26/20 Ondansetron Odt [Zofran Odt] 4 mg PO Q8HR PRN #10 tab 12/29/20 Scopolamine 1 mg/72 Hr Patch 1 patch TRANSDERM Q72H #4 patch 12/31/20 [TransDerm Scop] Allergies Allergy/AdvReac Type Severity Reaction Status Date / Time No Known Allergies Allergy Verified 06/26/23 09:31 Review of Systems ROS Statement: Those systems with pertinent positive or pertinent negative responses have been documented in the HPI. ROS Other: All systems not noted in ROS Statement are negative. Past Medical History Additional Past Medical History / Comment(s): Vertigo, migraines, hx palpitations, postive COVD test 12/02/20-no symptoms, EEG showed possibel seizures, hx ulcer, gallstone, History of Any Multi-Drug Resistant Organisms: None Reported Past Surgical History: Section, Cholecystectomy, Orthopedic Surgery Additional Past Surgical History / Comment(s): ORIF Right elbow/ humerus-2 pins Past Anesthesia/Blood Transfusion Reactions: No Reported Reaction Past Psychological History: No Psychological Hx Reported Smoking Status: Former smoker Past Alcohol Use History: Occasional Past Drug Use History: None Reported - Past Family History Mother Family Medical History: Cancer Additional Family Medical History / Comment(s): skin cancer General Exam - General Exam Comments Initial Comments: GENERAL: Patient is well-developed and well-nourished. Patient is nontoxic and well- hydrated and is in mild distress. ENT: Neck is soft and supple. No significant lymphadenopathy is noted. Oropharynx is clear. Moist mucous membranes. Neck has full range of motion without eliciting any pain. EYES: The sclera were anicteric and conjunctiva were pink and moist. Extraocular movements were intact and pupils were equal round and reactive to light. Eyelids were unremarkable. PULMONARY: Unlabored respirations. Good breath sounds bilaterally. No audible rales rhonchi or wheezing was noted. CARDIOVASCULAR: There is a regular rate and rhythm without any murmurs gallops or rubs. ABDOMEN: Soft and nontender with normal bowel sounds. No palpable organomegaly was noted. There is no palpable pulsatile mass. SKIN: Skin is clear with no lesions or rashes and otherwise unremarkable. NEUROLOGIC: Patient is alert and oriented x3. Cranial nerves II through XII are grossly intact. Motor and sensory are also intact. Normal speech, volume and content. Symmetrical smile. MUSCULOSKELETAL: Normal extremities with adequate strength and full range of motion. No lower extremity swelling or edema. No calf tenderness. LYMPHATICS: No significant lymphadenopathy is noted PSYCHIATRIC: Normal psychiatric evaluation. Limitations: no limitations Course Vital Signs 06/26/23 09:32 Temperature 97 F L Pulse Rate 83 Respiratory 18 Rate Blood Pressure 170/87 O2 Sat by Pulse 100 Oximetry Medical Decision Making - Medical Decision Making EKG was interpreted by myself. EKG shows a sinus rhythm at 71 bpm KS interval 282 QRS is 114 QT interval 396 QTC is 419. Patient's EKG shows no ST segment elevation or depression. Was pt. sent in by a medical professional or institution ([facility], SIPHON OPERATOR, urgent care, hospital, or custodial...) When possible be specific @ -No Did you speak to anyone other than the patient for history (EMS, parent, family, police, friend...)? What history was obtained from this source @ -No Did you review nursing and triage notes (agree or disagree)? Why? @ -I reviewed and agree with nursing and triage notes Were old charts reviewed (outside hosp., previous admission, EMS record, old EKG, old radiological studies, urgent care reports/EKG's, custodial records)? Report findings @ -Review prior charts in prior radiological studies. Differential Diagnosis (chest pain, altered mental status, abdominal pain women, abdominal pain men, vaginal bleeding, weakness, fever, dyspnea, syncope, headache, dizziness, GI bleed, back pain, seizure, CVA, palpatations, mental health, musculoskeletal)? @ -Differential Chest Pain: Stable Angina, Unstable Angina, STEMI, NSTEMI Aortic Dissection, Pneumothorax, Musculoskeletal, Esophageal Spasm GERD, Cholecystitis, Pancreatitis, Zoster, this is not meant to be an all-inclusive list. EKG interpreted by me (3pts min.). @ -As above X-rays interpreted by me (1pt min.). @ -Chest x-ray shows no acute abnormality CT interpreted by me (1pt min.). @ -None done U/S interpreted by me (1pt. min.). @ -None done What testing was considered but not performed or refused? (CT, X-rays, U/S, labs)? Why? @ -None What meds were considered but not given or refused? Why? @ -None Did you discuss the management of the patient with other professionals (professionals i.e. [facility] Javier, SIPHON OPERATOR, lab, RT, psych nurse, neonatal social worker, dray truck driver, teacher, account officer, case sealer)? Give summary @ -No Was smoking cessation discussed for >3mins.? @ -No Was critical care preformed (if so, how long)? @ -No Were there social determinants of health that impacted care today? How? ( Homelessness, low income, unemployed, alcoholism, drug addiction, transportation, low edu. Level, literacy, decrease access to med. care, correction, rehab)? @ -No Was there de-escalation of care discussed even if they declined (Discuss DNR or withdrawal of care, Hospice)? DNR status @ -No What co-morbidities impacted this encounter? (DM, HTN, Smoking, COPD, CAD, Cancer, CVA, ARF, Chemo, Hep., AIDS, mental health diagnosis, sleep apnea, morbid obesity)? @ -None Was patient admitted / discharged? Hospital course, mention meds given and route, prescriptions, significant lab abnormalities, going to OR and other pertinent info. @ -I went back and discussed the results with the patient I offered her admission she did not want admitted she stated she come back if symptoms worsen. Undiagnosed new problem with uncertain prognosis? @ -No Drug Therapy requiring intensive monitoring for toxicity (Heparin, Nitro, I nsulin, Cardizem)? @ -No Were any procedures done? @ -No Diagnosis/symptom? @ -Atypical chest pain Acute, or Chronic, or Acute on Chronic? @ -Acute Uncomplicated (without systemic symptoms) or Complicated (systemic symptoms)? @ -Complicated Side effects of treatment? @ -No Exacerbation, Progression, or Severe Exacerbation? @ -No Poses a threat to life or bodily function? How? (Chest pain, USA, RI, pneumonia, PE, COPD, DKA, ARF, appy, cholecystitis, CVA, Diverticulitis, Homicidal, Suicidal, threat to staff... and all critical care pts) @ -Yes this could lead to possible RI - Lab Data Result diagrams: 06/26/23 09:51 06/26/23 09:51 Lab Results 06/26/23 06/26/23 06/26/23 Range/Units 09:51 09:51 09:51 WBC 8.5 (3.8-10.6) k/uL RBC 4.49 (3.80-5.40) m/uL Hgb 13.5 (11.4-16.0) gm/dL Hct 42.0 (34.0-46.0) % MCV 93.5 (80.0-100.0) fL MCH 30.0 (25.0-35.0) pg MCHC 32.1 (31.0-37.0) g/dL RDW 15.4 (11.5-15.5) % Plt Count 350 (150-450) k/uL MPV 7.0 Neutrophils % 62 % Lymphocytes % 28 % Monocytes % 5 % Eosinophils % 3 % Basophils % 1 % Neutrophils # 5.2 (1.3-7.7) k/uL Lymphocytes # 2.3 (1.0-4.8) k/uL Monocytes # 0.5 (0-1.0) k/uL Eosinophils # 0.2 (0-0.7) k/uL Basophils # 0.1 (0-0.2) k/uL PT 10.1 (10.0-12.5) sec INR 0.9 (<1.2) APTT 22.4 (22.0-30.0) sec D-Dimer 0.50 (<0.60) mg/L FEU Sodium 138 (137-145) mmol/L Potassium 4.2 (3.5-5.1) mmol/L Chloride 105 (98-107) mmol/L Carbon Dioxide 22 (22-30) mmol/L Anion Gap 11 mmol/L BUN 9 (7-17) mg/dL Creatinine 0.81 (0.52-1.04) mg/dL Est GFR (CKD-EPI)AfAm >90 (>60 ml/min/1.73 sqM) Est GFR (CKD-EPI)NonAf 86 (>60 ml/min/1.73 sqM) Glucose 98 (74-99) mg/dL Calcium 9.0 (8.4-10.2) mg/dL Magnesium 1.8 (1.6-2.3) mg/dL Total Bilirubin 0.5 (0.2-1.3) mg/dL AST 21 (14-36) U/L ALT 21 (4-34) U/L Alkaline Phosphatase 79 (38-126) U/L Troponin I (0.000-0.034) ng/mL Total Protein 7.2 (6.3-8.2) g/dL Albumin 4.0 (3.5-5.0) g/dL 06/26/23 Range/Units 09:51 WBC (3.8-10.6) k/uL RBC (3.80-5.40) m/uL Hgb (11.4-16.0) gm/dL Hct (34.0-46.0) % MCV (80.0-100.0) fL MCH (25.0-35.0) pg MCHC (31.0-37.0) g/dL RDW (11.5-15.5) % Plt Count (150-450) k/uL MPV Neutrophils % % Lymphocytes % % Monocytes % % Eosinophils % % Basophils % % Neutrophils # (1.3-7.7) k/uL Lymphocytes # (1.0-4.8) k/uL Monocytes # (0-1.0) k/uL Eosinophils # (0-0.7) k/uL Basophils # (0-0.2) k/uL PT (10.0-12.5) sec INR (<1.2) APTT (22.0-30.0) sec D-Dimer (<0.60) mg/L FEU Sodium (137-145) mmol/L Potassium (3.5-5.1) mmol/L Chloride (98-107) mmol/L Carbon Dioxide (22-30) mmol/L Anion Gap mmol/L BUN (7-17) mg/dL Creatinine (0.52-1.04) mg/dL Est GFR (CKD-EPI)AfAm (>60 ml/min/1.73 sqM) Est GFR (CKD-EPI)NonAf (>60 ml/min/1.73 sqM) Glucose (74-99) mg/dL Calcium (8.4-10.2) mg/dL Magnesium (1.6-2.3) mg/dL Total Bilirubin (0.2-1.3) mg/dL AST (14-36) U/L ALT (4-34) U/L Alkaline Phosphatase (38-126) U/L Troponin I <0.012 (0.000-0.034) ng/mL Total Protein (6.3-8.2) g/dL Albumin (3.5-5.0) g/dL Disposition Clinical Impression: Atypical chest pain Disposition: HOME SELF-CARE Condition: Good Instructions (If sedation given, give patient instructions): Chest Pain (ED) Additional Instructions: Patient should return if the symptoms worsen or she has any new symptoms. Is patient prescribed a controlled substance at d/c from ED?: No Referrals: None,Stated [Primary Care Provider] - 1-2 days Time of Disposition: 10:49
[2023-06-26 10:11] LABS: Basophils # (A) 0.1 k/uL (0-0.2); Basophils % (A) 1 %; Eosinophils # (A) 0.2 k/uL (0-0.7); Eosinophils % (A) 3 %; HGB 13.5 gm/dL (11.4-16.0); Lymphocytes # (A) 2.3 k/uL (1.0-4.8); Lymphocytes % (A) 28 %; MCHC 32.1 g/dL (31.0-37.0); MCV 93.5 fL (80.0-100.0); Monocytes # (A) 0.5 k/uL (0-1.0); Monocytes % (A) 5 %; Neutrophils # (A) 5.2 k/uL (1.3-7.7); Neutrophils % (A) 62 %; Platelet Count 350 k/uL (150-450); RBC 4.49 m/uL (3.80-5.40); RDW 15.4 % (11.5-15.5); WBC 8.5 k/uL (3.8-10.6)
--- NOTE | 2023-06-26 10:17 | XR ---
EXAMINATION TYPE: XR chest 2V DATE OF EXAM: 06/26/2023 10:06 AM CLINICAL INDICATION:Female, 47 years old with history of Chest Pain; [facility] COMPARISON: Chest radiographs from 12/01/2020 TECHNIQUE: XR chest 2V Frontal and lateral views of the chest. FINDINGS: Lungs/Pleura: There is no evidence of pleural effusion, focal consolidation, or pneumothorax. Pulmonary vascularity: Unremarkable. Heart/mediastinum: Cardiomediastinal silhouette is unremarkable. Musculoskeletal: No acute osseous pathology. IMPRESSION: No acute cardiopulmonary disease/process.
[2023-06-26 10:19] LABS: ALT 21 U/L (4-34); AST 21 U/L (14-36); African American GFR (CKD) >90 (>60 ml/min/1.73 sqM); Alkaline Phosphatase 79 U/L (38-126); Anion Gap 11 mmol/L; Blood Urea Nitrogen 9 mg/dL (7-17); Carbon Dioxide 22 mmol/L (22-30); Chloride 105 mmol/L (98-107); Glucose 98 mg/dL (74-99); Magnesium 1.8 mg/dL (1.6-2.3); Non-African American GFR(CKD) 86 (>60 ml/min/1.73 sqM); Potassium 4.2 mmol/L (3.5-5.1); Sodium 138 mmol/L (137-145); Total Bilirubin 0.5 mg/dL (0.2-1.3); Total Protein 7.2 g/dL (6.3-8.2)
[2023-06-26 10:21] LABS: INR 0.9 (<1.2); Partial Thromboplastin Time 22.4 sec (22.0-30.0); Prothrombin Time 10.1 sec (10.0-12.5)
[2023-06-26 11:14] VITALS: BP 136/88; PULSE 76; RESP 16
== END 2023-06-26 11:01 | disposition home or self-care (01) ==
LOC: EC 09:29
DX: R07.89 Other chest pain (principal); Z87.891 Personal history of nicotine dependence; Z86.16 Personal history of COVID-19
CPT/HCPCS: 36415; 71046; 80053; 83735; 84484; 85025; 85379; 85610; 85730; 93005; 99285

== ENCOUNTER → 2024-08-28 | Outpatient (CLI) | payer BC ==
[2024-08-28 15:20] LABS: Basophils # (A) 0.09 X 10*3/uL (0.00-0.10); Basophils % (A) 0.8 %; Eosinophils % (A) 1.9 %; HGB 13.5 g/dL (12.0-15.0); Lymphocytes # (A) 2.47 X 10*3/uL (0.90-5.00); Lymphocytes % (A) 23.3 %; MCH 30.5 pg (27.0-32.0); MCHC 32.1 g/dL (32.0-37.0); Mean Platelet Volume 9.5 FL (9.5-12.2); Monocytes # (A) 1.01 X 10*3/uL (0.20-1.00); Monocytes % (A) 9.5 %; NRBC Per 100 WBC 0 X 10*3/uL (0.00-0.01); Neutrophils # (A) 6.78 X 10*3/uL (1.80-7.70); Platelet Count 324 X 10*3/uL (140-440); RBC 4.42 X 10*6/uL (4.10-5.20); RDW 14.3 % (11.5-14.5)
[2024-08-28 15:49] LABS: ALT 17 U/L (8-44); AST 14 U/L (13-35); Albumin 4.2 g/dL (3.8-4.9); Albumin/Globulin Ratio 1.56 Ratio (1.60-3.17); Alkaline Phosphatase 85 U/L (41-126); BUN/Creat Ratio 13.89 Ratio (12.00-20.00); Blood Urea Nitrogen 12.5 mg/dL (9.0-27.0); Carbon Dioxide 23.8 mmol/L (21.6-31.8); Chloride 106 mmol/L (96-109); Chol/HDL Ratio 2.56 Ratio; Globulin 2.7 g/dL (1.6-3.3); Glucose 98 mg/dL (70-110); LDL Cholesterol,Calculated 113.7 mg/dL (0.0-131.0); Potassium 4.6 mmol/L (3.5-5.5); Sodium 140 mmol/L (135-145); Total Bilirubin 0.3 mg/dL (0.3-1.2); Total Protein 6.9 g/dL (6.2-8.2); VLDL Calculation 17.88 mg/dL (5.00-40.00)
== END | disposition home or self-care (01) ==
LOC: LABWHC1 10:11
PROVIDERS: ATTEND Family Medicine
DX: Z13.228 Encounter for screening for other metabolic disorders (principal); Z13.29 Encounter for screening for other suspected endocrine disorder; Z13.220 Encounter for screening for lipoid disorders
CPT/HCPCS: 36415; 80053; 80061; 84443; 85025

== ENCOUNTER → 2024-11-16 | Outpatient (CLI) | payer BC ==
--- NOTE | 2024-11-17 07:19 | MM ---
Reason for Exam: Screening (asymptomatic). Last mammogram was performed 10 year(s) and 0 month(s) ago. Patient History: Menarche at age 9. First Full-Term at age 22. Risk Values: Isabelle 5 year model risk: 1.0%. NCI Lifetime model risk: 8.7%. Prior Study Comparison: 11/20/2014 Bilateral Screening Mammogram, [facility]. Tissue Density: The breasts are heterogeneously dense, which may obscure small masses. Findings: Analyzed By CAD. There is no suspicious group of microcalcifications or new suspicious mass in either breast. Overall Assessment: Benign, BI-RAD 2 Management: Screening Mammogram of both breasts in 1 year. . Patient should continue monthly self-breast exams. A clinical breast exam by your physician is recommended on an annual basis. This exam should not preclude additional follow-up of suspicious palpable abnormalities. Note on Isabelle scores and lifetime risk: 1. A Isabelle score greater than 3% is considered moderate risk. If this is the case, consider specialist referral to assess eligibility for a risk reducing agent. 2. If overall lifetime risk for the development of breast cancer is 20% or higher, the patient may qualify for future screening with alternating mammogram and breast MRI. [facility], , 11/17/2024 7:16 AM. Electronically signed and approved by: Nguyễn Corral M.D. Radiologis
== END | disposition home or self-care (01) ==
LOC: RADMAMWWP 15:08
PROVIDERS: ATTEND Family Medicine
DX: Z12.31 Encounter for screening mammogram for malignant neoplasm of breast (principal); R92.333 Mammographic heterogeneous density, bilateral breasts
CPT/HCPCS: 77067